=== PATIENT | female | born 1975 | race Caucasian/White ===

== ENCOUNTER 2017-05-18 03:43 | Emergency (ER) | payer SELFPAY ==
[2017-05-18 04:58] LABS: Bilirubin,Urine NEG (Negative); Blood,Urine NEG (Negative); Ketones,Urine NEG (Negative); Leukocyte Esterase,Urine NEG (Negative); Nitrite,Urine NEG (Negative); Protein,Urine <15 mg/dL mg/dL (Negative); RBC,Urine < 1.0 /HPF (0.0-6.0); Urobilinogen,Urine < 2.0 mg/dL (<2.0); WBC,Urine < 1.0 /HPF (0.0-6.0)
[2017-05-18 05:04] LABS: Basophils % (Auto) 0.6 % (0.0-1.8); Eosinophils % (Auto) 0.3 % (0.0-4.3); Hematocrit 32.8 % (30.3-42.9); Hemoglobin 10.5 gm/dl (10.1-14.3); Mean Corpuscular HGB Conc 32 % (30-34); Mean Corpuscular Volume 81 fl (79-97); Platelet Count 460 K/mm3 (140-440); Red Blood Count 4.05 M/mm3 (3.65-5.03); White Blood Count 7.5 K/mm3 (4.5-11.0)
[2017-05-18 05:11] LABS: Mean Corpuscular Hemoglobin 26 pg (28-32); Red Cell Distribution Width 20.6 % (13.2-15.2)
[2017-05-18 05:13] LABS: Anion Gap 22 mmol/L; Blood Urea Nitrogen 4 mg/dL (7-17); Calcium 9.4 mg/dL (8.4-10.2); Carbon Dioxide 22 mmol/L (22-30); Chloride 98.7 mmol/L (98-107); Glucose 108 mg/dL (65-100); Potassium 4.3 mmol/L (3.6-5.0); Sodium 138 mmol/L (137-145)
[2017-05-18] MEDS ORDERED: ATIVAN ONE (05:31)
[2017-05-18] MEDS ORDERED: ATIVAN PO ONE (05:35)
--- NOTE | 2017-05-18 06:51 | Emergency Department Report ---
ED Psych HPI - General Chief Complaint: Psych Stated Complaint: HEARING VOICES/MENTAL HEALTH EVALUATION Time Seen by Provider: 05/18/17 05:58 Source: patient Mode of arrival: Ambulatory - History of Present Illness Initial Comments: 41-year-old female here with complaint of wanting to harm herself. Patient has a history of bipolar and depression. States she is not taking her meds because they make her "crazy". She denies fevers chills nausea vomiting. She does complain of a mild headache. MD Complaint: suicidal ideation, feels depressed -: Gradual Associated Psychiatric Symptoms: depression, suicidal ideation Quality: constant Improves With: none Worsens With: medication Associated Symptoms: headache, insomnia. denies: shortness of breath, nausea, vomiting, syncope Treatments Prior to Arrival: none If Self Harm: admits thoughts of, has plan, has acted on plan - Related Data Previous Rx's Medication Instructions Recorded Last Taken Type Cyclobenzaprine [Flexeril] 10 mg PO TID PRN #14 tablet 12/20/16 Unknown Rx Naproxen [Naprosyn] 500 mg PO BID #30 tablet 12/20/16 Unknown Rx Allergies Allergy/AdvReac Type Severity Reaction Status Date / Time No Known Allergies Allergy Unverified 01/19/15 14:28 ED Review of Systems ROS: Stated complaint: HEARING VOICES/MENTAL HEALTH EVALUATION Other details as noted in HPI Comment: All other systems reviewed and negative Constitutional: denies: chills, fever Eyes: denies: eye pain, eye discharge, vision change ENT: denies: ear pain, throat pain Respiratory: denies: cough, shortness of breath, wheezing Cardiovascular: denies: chest pain, palpitations Endocrine: no symptoms reported Gastrointestinal: denies: abdominal pain, nausea, diarrhea Genitourinary: denies: urgency, dysuria, discharge Musculoskeletal: denies: back pain, joint swelling, arthralgia Skin: denies: rash, lesions Neurological: denies: headache, weakness, paresthesias Psychiatric: denies: anxiety, depression Hematological/Lymphatic: denies: easy bleeding, easy bruising ED Past Medical Hx - Past Medical History Previous Medical History?: Yes Hx Psychiatric Treatment: Yes (Bipolar and depression) - Surgical History Past Surgical History?: Yes Hx Appendectomy: Yes - Family History Family history: no significant - Social History Smoking Status: Current Every Day Smoker Substance Use Type: None - Medications Home Medications: Home Medications Medication Instructions Recorded Confirmed Last Taken Type Cyclobenzaprine [Flexeril] 10 mg PO TID PRN #14 tablet 12/20/16 Unknown Rx Naproxen [Naprosyn] 500 mg PO BID #30 tablet 12/20/16 Unknown Rx ED Physical Exam - General Limitations: No Limitations General appearance: alert, in no apparent distress - Head Head exam: Present: atraumatic, normocephalic - Eye Eye exam: Present: normal appearance, PERRL - ENT ENT exam: Present: mucous membranes moist - Neck Neck exam: Present: normal inspection - Respiratory Respiratory exam: Present: normal lung sounds bilaterally. Absent: respiratory distress - Cardiovascular Cardiovascular Exam: Present: regular rate, normal rhythm. Absent: systolic murmur, diastolic murmur, rubs, gallop - GI/Abdominal GI/Abdominal exam: Present: soft, normal bowel sounds - Extremities Exam Extremities exam: Present: normal inspection. Absent: tenderness - Back Exam Back exam: Present: normal inspection - Neurological Exam Neurological exam: Present: alert, oriented X3 - Psychiatric Psychiatric exam: Present: normal affect, agitated, anxious, suicidal ideation - Skin Skin exam: Present: warm, dry, intact, normal color. Absent: rash ED Course Vital Signs 05/18/17 05/18/17 05/18/17 03:50 03:59 08:13 Temperature 98.5 F 98.5 F 98.5 F Pulse Rate 101 H 101 H 97 H Respiratory 20 20 20 Rate Blood Pressure 138/99 Blood Pressure 138/99 119/66 [Right] O2 Sat by Pulse 99 99 100 Oximetry ED Medical Decision Making - Lab Data Result diagrams: 05/18/17 04:41 05/18/17 04:41 Laboratory Results - last 24 hr 05/18/17 05/18/17 05/18/17 04:41 04:41 05:25 WBC 7.5 RBC 4.05 Hgb 10.5 Hct 32.8 MCV 81 MCH 26 L MCHC 32 RDW 20.6 H Plt Count 460 H Lymph % (Auto) 44.1 H [place] % (Auto) 9.8 H Eos % (Auto) 0.3 Baso % (Auto) 0.6 Lymph # 3.3 [place] # 0.7 Eos # 0.0 Baso # 0.0 Seg Neutrophils % 45.2 Seg Neutrophils # 3.4 Sodium 138 Potassium 4.3 Chloride 98.7 Carbon Dioxide 22 Anion Gap 22 BUN 4 L Creatinine 0.5 L Estimated GFR > 60 BUN/Creatinine Ratio 8.00 Glucose 108 H Calcium 9.4 Urine Color Urine Turbidity Urine pH Ur Specific [place] Urine Protein Urine Glucose (UA) Urine Ketones Urine Blood Urine Nitrite Urine Bilirubin Urine Urobilinogen Ur Leukocyte Esterase Urine WBC (Auto) Urine RBC (Auto) Urine HCG, Qual Acetaminophen < 15.0 Plasma/Serum Alcohol 05/18/17 05/18/17 05:25 Unknown WBC RBC Hgb Hct MCV MCH MCHC RDW Plt Count Lymph % (Auto) [place] % (Auto) Eos % (Auto) Baso % (Auto) Lymph # [place] # Eos # Baso # Seg Neutrophils % Seg Neutrophils # Sodium Potassium Chloride Carbon Dioxide Anion Gap BUN Creatinine Estimated GFR BUN/Creatinine Ratio Glucose Calcium Urine Color Straw Urine Turbidity Clear Urine pH 6.0 Ur Specific [place] 1.000 L Urine Protein <15 mg/dl Urine Glucose (UA) Neg Urine Ketones Neg Urine Blood Neg Urine Nitrite Neg Urine Bilirubin Neg Urine Urobilinogen < 2.0 Ur Leukocyte Esterase Neg Urine WBC (Auto) < 1.0 Urine RBC (Auto) < 1.0 Urine HCG, Qual Negative Acetaminophen Plasma/Serum Alcohol 0.17 H - Medical Decision Making Patient is a 41-year-old female here with complaint of suicidality and depression. She complains of agitation. She has a mild headache. I will treat this with ibuprofen. She is medically clear for further psychiatric evaluation from my standpoint. Portions of this chart were dictated with dictation software. There may be dictation errors contained within this note. Critical care attestation.: If time is entered above; I have spent that time in minutes in the direct care of this critically ill patient, excluding procedure time. ED Disposition Clinical Impression: Suicidal ideation Disposition: [id number]/TX-[id number] PSY HOSP/PSY UNIT Is pt being admited?: No Condition: Stable Referrals: PRIMARY CARE, [Primary Care Provider] - 3-5 Days
[2017-05-18] MEDS ORDERED: MOTRIN PO ONE (06:52)
[2017-05-18 06:56] LABS: Urine Drugs of Abuse Note Disclamer
--- NOTE | 2017-05-18 15:40 | Consultation ---
History of Present Illness - Reason for Consult Consult date: 05/18/17 Reason for consult: psychiatric evaluation - Chief Complaint Chief complaint: sleeping 41 year old female presented complaining of suicidal ideation and command auditory hallucinations worsening for the past 2 weeks. Per the record, she stated during triage that she wanted to and was going to kill herself. Per the reocrd, she was uncooperative with previous assessment attempts but at one point admitted that she was hearing voices and that the voices were telling her to kill herself. She denied any thought or directive to harm others. She was sleeping and despite several attempts to speak with her, she continued to sleep. The information was obtained via the record. Her drug screen was positive for cocaine and alcohol level was 0.17 Medications and Allergies Allergies Allergy/AdvReac Type Severity Reaction Status Date / Time No Known Allergies Allergy Unverified 01/19/15 14:28 Home Medications Medication Instructions Recorded Confirmed Last Taken Type Cyclobenzaprine [Flexeril] 10 mg PO TID PRN #14 tablet 12/20/16 Unknown Rx Naproxen [Naprosyn] 500 mg PO BID #30 tablet 12/20/16 Unknown Rx Past psychiatric history - Past Medical History Past Medical History: other (unable to obtain) Past Surgical History: Other (unable to obtain) - past Psychiatric treatment and history psychiatric treatment history: unable to obtain - Social History Social history: other (unable to obtain) Mental Status Exam - Vital signs Last Vital Signs Temp 98.5 F 05/18/17 08:13 Pulse 97 H 05/18/17 08:13 Resp 20 05/18/17 08:13 BP 119/66 05/18/17 08:13 Pulse Ox 100 05/18/17 08:13 - Exam Narrative exam: per the record, she previously reported suicidal ideation, paranoia unable to obtain additional information Orientation: person Results Result Diagrams: 05/18/17 04:41 05/18/17 04:41 Abnormal lab results 05/18/17 05/18/17 05/18/17 Range/Units 04:41 04:41 05:25 MCH 26 L (28-32) pg RDW 20.6 H (13.2-15.2) % Plt Count 460 H (140-440) K/mm3 Lymph % (Auto) 44.1 H (13.4-35.0) % [place] % (Auto) 9.8 H (0.0-7.3) % BUN 4 L (7-17) mg/dL Creatinine 0.5 L (0.7-1.2) mg/dL Glucose 108 H (65-100) mg/dL Ur Specific [place] (1.003-1.030) Salicylates < 0.3 L (2.8-20.0) mg/dL Plasma/Serum Alcohol (0-0.07) gm% 05/18/17 05/18/17 Range/Units 05:25 Unknown MCH (28-32) pg RDW (13.2-15.2) % Plt Count (140-440) K/mm3 Lymph % (Auto) (13.4-35.0) % [place] % (Auto) (0.0-7.3) % BUN (7-17) mg/dL Creatinine (0.7-1.2) mg/dL Glucose (65-100) mg/dL Ur Specific [place] 1.000 L (1.003-1.030) Salicylates (2.8-20.0) mg/dL Plasma/Serum Alcohol 0.17 H (0-0.07) gm% All other labs normal. Assessment and Plan Assessment and plan: Impression: possible substance induced psychosis + for cocaine and alcohol level 0.17 Recommendation: Continue 1013 and reevaluate in 24 hours Attempt to obtain collateral
[2017-05-19] MEDS ORDERED: MOTRIN PO ONE (12:24)
--- NOTE | 2017-05-19 12:45 | Progress Note ---
Subjective - Reason for Consult Consult date: 05/19/17 Reason for consult: Psychiatry Follow-up - Chief Complaint Chief complaint: "Hello" 41 year old female presented complaining of suicidal ideation and command auditory hallucinations worsening for the past 2 weeks. Today patient is calm, cooperative, but anxious and paranoid during assessment. She stated that she is still suicidal because of the voices she hear. She stated that these voices have been out of control for weeks and they are telling her to kill herself. She stated that she would overdose on pills is she had the chance. She admitted being scared, but can't explain why. She stated that she tried cocaine with a friend for the first time along with consuming alcohol. She stated that she consumed more alcohol than normal because she wanted the voices to go away. During our conversation, the patient kept her head covered. She denies HI's, VH' s, but stated sleep disturbance. She stated taken Zyprexa for Bipolar/ Depression. She admit to medication non-compliance and not seeing her psychiatrist for the past few months. She denies any suicide attempts and psy inpatient services in the past. Mental Status Exam - Vital signs Last Vital Signs Temp 98.5 F 05/18/17 08:13 Pulse 97 H 05/18/17 08:13 Resp 20 05/19/17 10:57 BP 119/66 05/18/17 08:13 Pulse Ox 100 05/19/17 10:57 - Exam Narrative exam: MSE: Appearance: calm, cooperative Behavior: regular eye contact Speech: low rate and tone Mood: "scared" Affect: labile Thought Process: circumstantial Thought Content: denies HI's and VH's, paranoid Motor Activity: ambulatory Cognition: A/Ox 3 Insight: poor Judgment: poor Assessment and Plan Impression: Historical Dx: Bipolar/Depression. Active Psychosis (AH's/Paranoia) . Substance Use DO (Cocaine). Alcohol Use DO. Positive for cocaine. Alcohol serum 0.17. Today patient is calm, cooperative, but anxious and paranoid during assessment. Recommendation/Plan: Continue 1013 with placement to inpatient psy services. Start Zyprexa 5 mg PO HS for psychotic symptoms/mood, Cogentin 0.5 mg PO HS for EPS prevention, and Vistaril 25 mg PO Q6hrs PRN for anxiety. Discussed possible metabolic side effects of Zyprexa with patient.
[2017-05-19] MEDS: COGENTIN PO SCH (22:00)
[2017-05-19] MEDS: VISTARIL PO PRN (22:00)
[2017-05-20] MEDS ORDERED: MOTRIN PO ONE (10:56)
[2017-05-20] MEDS: MOTRIN PO PRN (10:58)
--- NOTE | 2017-05-20 12:42 | Progress Note ---
Subjective - Reason for Consult Consult date: 05/20/17 Reason for consult: Psychiatry Follow-up - Chief Complaint Chief complaint: "Hello" 41 year old female presented complaining of suicidal ideation and command auditory hallucinations worsening for the past 2 weeks. Today patient is calm and cooperative during the assessment. She still reports AH's that interfere with her sleep. She stated that she isn't scared today, but still feel that someone is watching her. The patient did not have the sheets pulled over her head as she did yesterday. She denies HI's, VH"s, and and depression. She stated that she still feel suicidal. She denies any side effects of her medications. Mental Status Exam - Vital signs Last Vital Signs Temp 98.9 F 05/19/17 20:15 Pulse 99 H 05/20/17 07:30 Resp 18 05/20/17 07:30 BP 115/82 05/20/17 07:30 Pulse Ox 100 05/20/17 07:30 - Exam Narrative exam: MSE: Appearance: calm, cooperative Behavior: regular eye contact Speech: regular rate and tone Mood: "tired" Affect: labile Thought Process: circumstantial Thought Content: denies HI's and VH's, paranoid Motor Activity: ambulatory Cognition: A/Ox 3 Insight: limited Judgment: limited Assessment and Plan Impression: Historical Dx: Bipolar/Depression. Active Psychosis (AH's/Paranoia) . Substance Use DO (Cocaine). Alcohol Use DO. Positive for cocaine. Alcohol serum 0.17. Today patient is calm and cooperative during assessment. Recommendation/Plan: Continue 1013 with placement to inpatient psy services. Modify Zyprexa to 10 mg PO HS for psychotic symptoms/mood, Cogentin 0.5 mg PO HS for EPS prevention, and Vistaril 25 mg PO Q6hrs PRN for anxiety. Discussed possible metabolic side effects of Zyprexa with patient. Possible order a sleep aid tomorrow if patient report sleep disturbance overnight.
[2017-05-20] MEDS: VISTARIL PO PRN (23:05)
[2017-05-20] MEDS: COGENTIN PO SCH (23:09)
[2017-05-21] MEDS: MOTRIN PO PRN (08:48)
[2017-05-21] MEDS: COGENTIN PO SCH (22:55)
[2017-05-21] MEDS: VISTARIL PO PRN (23:04)
--- NOTE | 2017-05-22 11:27 | Progress Note ---
Subjective - Reason for Consult Consult date: 05/22/17 Reason for consult: Psychiatry Follow-up - Chief Complaint Chief complaint: "How are you" 41 year old female presented complaining of suicidal ideation and command auditory hallucinations worsening for the past 2 weeks. Today patient is calm and cooperative during the assessment. She stated that the voices have ceased the past 24 hours. She denies SI/HI's and depression symptoms. She stated that she feel safe prior to other assessments (paranoia). She stated that she will not use cocaine again. She denies any side effects of her medications. Mental Status Exam - Vital signs Last Vital Signs Temp 98.2 F 05/22/17 10:21 Pulse 82 05/22/17 10:21 Resp 18 05/22/17 10:21 BP 147/87 05/22/17 10:21 Pulse Ox 97 05/22/17 10:21 - Exam Narrative exam: MSE: Appearance: calm, cooperative Behavior: regular eye contact Speech: regular rate and tone Mood: "well" Affect: congruent to mmod Thought Process: circumstantial Thought Content: denies SI/HI's and AVH's Motor Activity: ambulatory Cognition: A/Ox 3 Insight: fair Judgment: fair Assessment and Plan Impression: Historical Dx: Bipolar/Depression. Substance Use DO (Cocaine). Alcohol Use DO. Positive for cocaine. Today patient is calm and cooperative during assessment. Recommendation/Plan: Evaluate 1013 in 24 hours to determine proper dispo. Continue Zyprexa to 10 mg PO HS for psychotic symptoms/mood, Cogentin 0.5 mg PO HS for EPS prevention, and Vistaril 25 mg PO Q6hrs PRN for anxiety. Discussed possible metabolic side effects of Zyprexa with patient.
[2017-05-22] MEDS: MOTRIN PO PRN (22:29)
[2017-05-22] MEDS: COGENTIN PO SCH (22:29)
[2017-05-22] MEDS: VISTARIL PO PRN (22:30)
[2017-05-23] MEDS: MOTRIN PO PRN (10:34)
--- NOTE | 2017-05-23 11:55 | Progress Note ---
Subjective - Reason for Consult Consult date: 05/23/17 Reason for consult: Psychiatry Follow-up - Chief Complaint Chief complaint: "I feel much better" 41 year old female presented complaining of suicidal ideation and command auditory hallucinations worsening for the past 2 weeks. Today patient is calm and cooperative during the assessment. She stated that she slept well and look forward to being discharged. She stated that she would like information about outpatient psy services. She denies SI/HI's, AVH's, and depression symptoms. She stated that she feel safe prior to other assessments (paranoia). Mental Status Exam - Vital signs Last Vital Signs Temp 98.2 F 05/23/17 07:34 Pulse 75 05/23/17 07:34 Resp 16 05/23/17 07:34 BP 111/64 05/23/17 07:34 Pulse Ox 99 05/23/17 07:34 - Exam Narrative exam: MSE: Appearance: calm, cooperative Behavior: regular eye contact Speech: regular rate and tone Mood: "well" Affect: congruent to mood Thought Process: linear Thought Content: denies SI/HI's and AVH's Motor Activity: ambulatory Cognition: A/Ox 3 Insight: fair Judgment: fair Assessment and Plan Impression: Historical Dx: Bipolar/Depression. Substance Use DO (Cocaine). Alcohol Use DO. Today patient is calm and cooperative during assessment. Patient is no threat to self. Recommendation/Plan: Rescind 1013. Continue Zyprexa to 10 mg PO HS for psychotic symptoms/mood and Cogentin 0.5 mg PO HS for EPS prevention. Discussed possible metabolic side effects of Zyprexa with patient. Patient given outpatient psy services for [facility].
--- NOTE | 2017-05-23 14:04 | Emergency Department Report ---
HPI - General Chief Complaint: Psych Time Seen by Provider: 05/18/17 05:58 ED Past Medical Hx - Past Medical History Previous Medical History?: Yes Hx Psychiatric Treatment: Yes (Bipolar and depression) - Surgical History Past Surgical History?: Yes Hx Appendectomy: Yes - Social History Smoking Status: Current Every Day Smoker Substance Use Type: None - Medications Home Medications: Home Medications Medication Instructions Recorded Confirmed Last Taken Type Benztropine [Cogentin] 0.5 mg PO HS #30 tablet 05/23/17 Unknown Rx OLANzapine [ZyPREXA] 10 mg PO HS #30 tablet 05/23/17 Unknown Rx ED Review of Systems ROS: Stated complaint: HEARING VOICES/MENTAL HEALTH EVALUATION Other details as noted in HPI Constitutional: denies: chills, fever Eyes: denies: eye pain, eye discharge, vision change ENT: denies: ear pain, throat pain Respiratory: denies: cough, shortness of breath, wheezing Cardiovascular: denies: chest pain, palpitations Endocrine: no symptoms reported Gastrointestinal: denies: abdominal pain, nausea, diarrhea Genitourinary: denies: urgency, dysuria, discharge Musculoskeletal: denies: back pain, joint swelling, arthralgia Skin: denies: rash, lesions Neurological: denies: headache, weakness, paresthesias Psychiatric: denies: anxiety, depression Hematological/Lymphatic: denies: easy bleeding, easy bruising Physical Exam - Physical Exam Vital Signs: Vital Signs 05/18/17 05/18/17 05/18/17 03:50 03:59 08:13 Temperature 98.5 F 98.5 F 98.5 F Pulse Rate 101 H 101 H 97 H Respiratory 20 20 20 Rate Blood Pressure 138/99 Blood Pressure 138/99 119/66 [Right] O2 Sat by Pulse 99 99 100 Oximetry 05/19/17 05/19/17 05/19/17 10:00 10:57 20:15 Temperature 98.6 F 98.9 F Pulse Rate 82 76 Respiratory 18 20 18 Rate Blood Pressure Blood Pressure 107/77 102/71 [Right] O2 Sat by Pulse 100 96 Oximetry 05/19/17 05/20/17 05/20/17 22:00 07:30 20:00 Temperature 98.9 F Pulse Rate 99 H 78 Respiratory 16 18 18 Rate Blood Pressure Blood Pressure 115/82 120/79 [Right] O2 Sat by Pulse 100 98 Oximetry 05/21/17 05/21/17 05/21/17 08:30 08:31 20:03 Temperature 98.4 F 98.6 F Pulse Rate 88 69 Respiratory 14 14 18 Rate Blood Pressure Blood Pressure 127/78 113/66 [Right] O2 Sat by Pulse 98 98 100 Oximetry 05/21/17 05/22/17 05/22/17 20:05 10:21 21:39 Temperature 98.2 F 99.4 F Pulse Rate 82 60 Respiratory 18 18 16 Rate Blood Pressure Blood Pressure 147/87 122/70 [Right] O2 Sat by Pulse 100 97 Oximetry 05/22/17 05/23/17 21:50 07:34 Temperature 98.6 F 98.2 F Pulse Rate 73 75 Respiratory 16 16 Rate Blood Pressure Blood Pressure 127/77 111/64 [Right] O2 Sat by Pulse 99 Oximetry ED Course Vital Signs 05/18/17 05/18/17 05/18/17 03:50 03:59 08:13 Temperature 98.5 F 98.5 F 98.5 F Pulse Rate 101 H 101 H 97 H Respiratory 20 20 20 Rate Blood Pressure 138/99 Blood Pressure 138/99 119/66 [Right] O2 Sat by Pulse 99 99 100 Oximetry 05/19/17 05/19/17 05/19/17 10:00 10:57 20:15 Temperature 98.6 F 98.9 F Pulse Rate 82 76 Respiratory 18 20 18 Rate Blood Pressure Blood Pressure 107/77 102/71 [Right] O2 Sat by Pulse 100 96 Oximetry 05/19/17 05/20/17 05/20/17 22:00 07:30 20:00 Temperature 98.9 F Pulse Rate 99 H 78 Respiratory 16 18 18 Rate Blood Pressure Blood Pressure 115/82 120/79 [Right] O2 Sat by Pulse 100 98 Oximetry 05/21/17 05/21/17 05/21/17 08:30 08:31 20:03 Temperature 98.4 F 98.6 F Pulse Rate 88 69 Respiratory 14 14 18 Rate Blood Pressure Blood Pressure 127/78 113/66 [Right] O2 Sat by Pulse 98 98 100 Oximetry 05/21/17 05/22/17 05/22/17 20:05 10:21 21:39 Temperature 98.2 F 99.4 F Pulse Rate 82 60 Respiratory 18 18 16 Rate Blood Pressure Blood Pressure 147/87 122/70 [Right] O2 Sat by Pulse 100 97 Oximetry 05/22/17 05/23/17 21:50 07:34 Temperature 98.6 F 98.2 F Pulse Rate 73 75 Respiratory 16 16 Rate Blood Pressure Blood Pressure 127/77 111/64 [Right] O2 Sat by Pulse 99 Oximetry ED Medical Decision Making - Lab Data Result diagrams: 05/18/17 04:41 05/18/17 04:41 Critical care attestation.: If time is entered above; I have spent that time in minutes in the direct care of this critically ill patient, excluding procedure time. ED Disposition Clinical Impression: Suicidal ideation, Bipolar 1 disorder, depressed Disposition: DC-01 TO HOME OR SELFCARE Is pt being admited?: No Condition: Stable Instructions: Bipolar Disorder (ED), Suicide Prevention for Adults (ED) Additional Instructions: Please continue your Zyprexa 10 mg at night. He may also take Cogentin 0.5 mg at night. Follow up as an outpatient the [facility]. Prescriptions: Benztropine [Cogentin] 0.5 mg PO HS #30 tablet OLANzapine [ZyPREXA] 10 mg PO HS #30 tablet Referrals: PRIMARY CARE, [Primary Care Provider] - 3-5 Days
[2017-05-23 14:27] VITALS: BP 131/89
== END 2017-05-23 14:33 | disposition home or self-care (01) ==
LOC: ED 03:43 → EEVIPCON 03:43 → ED 05-23 14:33
DX: R45.851 Suicidal ideations (principal); F17.200 Nicotine dependence, unspecified, uncomplicated
CPT/HCPCS: 36415; 80048; 80307; 81001; 81025; 85025; 99284; G0480; 80320; Q0177

== ENCOUNTER 2017-05-24 08:32 | Emergency (ER) | payer SELFPAY ==
[2017-05-24] MEDS ORDERED: BENADRYL IM PRN (08:42)
[2017-05-24] MEDS ORDERED: ATIVAN IM PRN (08:42)
[2017-05-24] MEDS ORDERED: HALDOL IM PRN (08:42)
[2017-05-24] MEDS ORDERED: ATIVAN ONE (08:43)
--- NOTE | 2017-05-24 09:00 | Emergency Department Report ---
HPI - General Chief Complaint: Psych - HPI HPI: Room 15 The patient is a 41-year-old female presenting with a chief complaint psychosis. The patient reportedly called the crisis line when turn called police. Police states that the patient was erratic stated that she was worried about people coming out of the TV trying to hurt her. The patient states she had a knife to protect herself against people coming out of the television. The patient states she was taking her medication for her medication is not working. Police states the patient stated "I want to ." The patient was transported to the ED where she became combative and continued to be erratic Location: Mental state Duration: Unknown Quality: [see above] Severity: [see above] Modifying factors: [see above] Context: [see above] Mode of transportation: [not driving] ED Past Medical Hx - Past Medical History Hx Psychiatric Treatment: Yes (Bipolar and depression) - Surgical History Hx Appendectomy: Yes - Family History Family history: no significant - Social History Smoking Status: Unknown if ever smoked - Medications Home Medications: Home Medications Medication Instructions Recorded Confirmed Last Taken Type Benztropine [Cogentin] 0.5 mg PO HS #30 tablet 05/23/17 Unknown Rx OLANzapine [ZyPREXA] 10 mg PO HS #30 tablet 05/23/17 Unknown Rx ED Review of Systems ROS: Stated complaint: 1013/MH Other details as noted in HPI Comment: Unobtainable due to pts medical conditions Physical Exam - Physical Exam Physical Exam: GENERAL: The patient is well-developed well-nourished female screaming and combative requiring restraints by staff. [] HEENT: Normocephalic. NECK: Trachea midline CHEST/LUNGS: Airway patent. There is no respiratory distress noted. HEART/CARDIOVASCULAR: Regular. ABDOMEN: There is no abdominal distention. SKIN: There is no rash. There is no edema. There is no diaphoresis. NEURO: The patient is awake and combative. Moves all extremities well MUSCULOSKELETAL: There is no evidence of acute injury. ED Medical Decision Making - Lab Data Result diagrams: 05/24/17 12:00 05/24/17 12:00 Laboratory Tests 05/24/17 05/24/17 05/24/17 10:00 10:00 12:00 WBC RBC Hgb Hct MCV MCH MCHC RDW Plt Count Lymph % (Auto) [place] % (Auto) Eos % (Auto) Baso % (Auto) Lymph # [place] # Eos # Baso # Seg Neutrophils % Seg Neutrophils # Sodium Potassium Chloride Carbon Dioxide Anion Gap BUN Creatinine Estimated GFR BUN/Creatinine Ratio Glucose Calcium Total Bilirubin AST ALT Alkaline Phosphatase Total Protein Albumin Albumin/Globulin Ratio HCG, Qual Urine Color Straw Urine Turbidity Clear Urine pH 6.0 Ur Specific [place] 1.001 L Urine Protein <15 mg/dl Urine Glucose (UA) Neg Urine Ketones Neg Urine Blood Lg Urine Nitrite Neg Urine Bilirubin Neg Urine Urobilinogen < 2.0 Ur Leukocyte Esterase Neg Urine WBC (Auto) < 1.0 Urine RBC (Auto) 1.0 Salicylates Urine Opiates Screen Presumptive negative Urine Methadone Screen Presumptive negative Acetaminophen Ur Barbiturates Screen Presumptive negative Ur Phencyclidine Scrn Presumptive negative Ur Amphetamines Screen Presumptive negative U Benzodiazepines Scrn Presumptive negative Urine Cocaine Screen Presumptive positive U Marijuana (THC) Screen Presumptive negative Drugs of Abuse Note Disclamer Plasma/Serum Alcohol 0.11 H 05/24/17 05/24/17 05/24/17 12:00 12:00 12:00 WBC 8.9 RBC 3.88 Hgb 10.1 Hct 31.5 MCV 81 MCH 26 L MCHC 32 RDW 20.2 H Plt Count 358 Lymph % (Auto) 21.6 [place] % (Auto) 12.9 H Eos % (Auto) 0.3 Baso % (Auto) 1.0 Lymph # 1.9 [place] # 1.2 H Eos # 0.0 Baso # 0.1 Seg Neutrophils % 64.2 Seg Neutrophils # 5.7 Sodium 140 Potassium 3.7 Chloride 100.9 Carbon Dioxide 20 L Anion Gap 23 BUN 7 Creatinine 0.5 L Estimated GFR > 60 BUN/Creatinine Ratio 14.00 Glucose 116 H Calcium 9.0 Total Bilirubin < 0.20 AST 153 H ALT 76 H Alkaline Phosphatase 73 Total Protein 7.6 Albumin 4.0 Albumin/Globulin Ratio 1.1 HCG, Qual Urine Color Urine Turbidity Urine pH Ur Specific [place] Urine Protein Urine Glucose (UA) Urine Ketones Urine Blood Urine Nitrite Urine Bilirubin Urine Urobilinogen Ur Leukocyte Esterase Urine WBC (Auto) Urine RBC (Auto) Salicylates < 0.3 L Urine Opiates Screen Urine Methadone Screen Acetaminophen Ur Barbiturates Screen Ur Phencyclidine Scrn Ur Amphetamines Screen U Benzodiazepines Scrn Urine Cocaine Screen U Marijuana (THC) Screen Drugs of Abuse Note Plasma/Serum Alcohol 05/24/17 05/24/17 12:00 12:00 WBC RBC Hgb Hct MCV MCH MCHC RDW Plt Count Lymph % (Auto) [place] % (Auto) Eos % (Auto) Baso % (Auto) Lymph # [place] # Eos # Baso # Seg Neutrophils % Seg Neutrophils # Sodium Potassium Chloride Carbon Dioxide Anion Gap BUN Creatinine Estimated GFR BUN/Creatinine Ratio Glucose Calcium Total Bilirubin AST ALT Alkaline Phosphatase Total Protein Albumin Albumin/Globulin Ratio HCG, Qual Negative Urine Color Urine Turbidity Urine pH Ur Specific [place] Urine Protein Urine Glucose (UA) Urine Ketones Urine Blood Urine Nitrite Urine Bilirubin Urine Urobilinogen Ur Leukocyte Esterase Urine WBC (Auto) Urine RBC (Auto) Salicylates Urine Opiates Screen Urine Methadone Screen Acetaminophen < 15.0 Ur Barbiturates Screen Ur Phencyclidine Scrn Ur Amphetamines Screen U Benzodiazepines Scrn Urine Cocaine Screen U Marijuana (THC) Screen Drugs of Abuse Note Plasma/Serum Alcohol - Differential Diagnosis psychosis, suicidal ideation Critical care attestation.: If time is entered above; I have spent that time in minutes in the direct care of this critically ill patient, excluding procedure time. ED Disposition Clinical Impression: Suicidal ideation, Psychosis, Cocaine abuse, Alcohol intoxication Disposition: DC/TX-65 PSY HOSP/PSY UNIT Is pt being admited?: No Does the pt Need Aspirin: No Condition: Serious Time of Disposition: 13:58 (awaiting acceptance)
[2017-05-24 10:05] LABS: Urine Drugs of Abuse Note Disclamer
[2017-05-24 11:33] LABS: Bilirubin,Urine NEG (Negative); Blood,Urine LG (Negative); Ketones,Urine NEG (Negative); Leukocyte Esterase,Urine NEG (Negative); Nitrite,Urine NEG (Negative); Protein,Urine <15 mg/dL mg/dL (Negative); Urobilinogen,Urine < 2.0 mg/dL (<2.0); WBC,Urine < 1.0 /HPF (0.0-6.0)
[2017-05-24 12:26] LABS: Eosinophils % (Auto) 0.3 % (0.0-4.3); Hematocrit 31.5 % (30.3-42.9); Hemoglobin 10.1 gm/dl (10.1-14.3); Mean Corpuscular HGB Conc 32 % (30-34); Mean Corpuscular Hemoglobin 26 pg (28-32); Mean Corpuscular Volume 81 fl (79-97); Platelet Count 358 K/mm3 (140-440); Red Blood Count 3.88 M/mm3 (3.65-5.03); White Blood Count 8.9 K/mm3 (4.5-11.0)
[2017-05-24 12:28] LABS: Red Cell Distribution Width 20.2 % (13.2-15.2)
[2017-05-24 12:29] LABS: Alanine Aminotransferase 76 units/L (7-56); Albumin/Globulin Ratio 1.1 %; Alkaline Phosphatase 73 units/L (35-129); Anion Gap 23 mmol/L; Bilirubin,Total < 0.20 mg/dL (0.1-1.2); Blood Urea Nitrogen 7 mg/dL (7-17); Carbon Dioxide 20 mmol/L (22-30); Chloride 100.9 mmol/L (98-107); Glucose 116 mg/dL (65-100); Potassium 3.7 mmol/L (3.6-5.0); Sodium 140 mmol/L (137-145); Total Protein 7.6 g/dL (6.3-8.2)
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
[2017-05-25] MEDS: COGENTIN PO SCH (21:59)
--- NOTE | 2017-05-26 11:28 | Progress Note ---
Subjective - Reason for Consult Consult date: 05/26/17 Reason for consult: Psychiatry Follow-up - Chief Complaint Chief complaint: "I need to stop" The patient is a 41-year-old female presenting with a chief complaint of psychotic symptoms and wanting to harm herself. She presented to the ER on for similar symptoms. Today patient is calm and cooperative during assessment. She stated that she consumed alcohol and used cocaine because it was available at the time. She stated knowing that's not the right thing to do, but her friend (partner) or friends who live with her make her "crazy." She stated that they argue often and she cannot deal with it. Per the patient she plan to put them out once she is discharged. She stated that she took her medication prior to consuming the substances. She denies SI/HI's, AVH's, and depression. She denies any side effects of her medications. Mental Status Exam - Vital signs Last Vital Signs Temp 98 F 05/26/17 03:21 Pulse 88 05/26/17 03:21 Resp 18 05/26/17 03:21 BP 132/75 05/26/17 03:21 Pulse Ox 97 05/26/17 03:21 - Exam Narrative exam: MSE: Appearance: calm, cooperative Behavior: regular eye contact Speech: regular rate and tone Mood: "I don't know" Affect: congruent to mood Thought Process: circumstantial Thought Content: denies HI/SI's and AVH's Motor Activity: sitting up in the bed Cognition: A/Ox 3 Insight: variable Judgment: variable Assessment and Plan Impression: Historical Dx: Bipolar/Depression/Schizophrenia. Substance Use DO ( Cocaine). Alcohol Use DO. Positive for cocaine. Alcohol serum 0.11. Today patient is calm and cooperative during assessment. Psychosocial stressors present. She denies physical abuse. Recommendation/Plan: Evaluate 1013 in 24 hours to determine proper dispo. Continue Zyprexa to 10 mg PO HS for psychotic symptoms/mood and Cogentin 0.5 mg PO HS for EPS prevention.
[2017-05-26] MEDS: COGENTIN PO SCH (22:00)
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
[2017-05-27] MEDS: COGENTIN PO SCH (22:01)
--- NOTE | 2017-05-28 14:28 | Progress Note ---
Subjective - Reason for Consult Consult date: 05/28/17 Reason for consult: follow up - Chief Complaint Chief complaint: "I want to go home." The patient is a 41-year-old female presenting with a chief complaint of psychotic symptoms and wanting to harm herself. She presented to the ER on for similar symptoms. Today patient is calm and cooperative during assessment. She denies SI/HI's, AVH's, and depression. She denies any side effects of her medications. She minimizes the circumstances of her 2 hospital stays. Mental Status Exam - Vital signs Last Vital Signs Temp 98.6 F 05/28/17 12:23 Pulse 78 05/28/17 12:23 Resp 20 05/28/17 12:23 BP 132/72 05/28/17 12:23 Pulse Ox 99 05/28/17 12:23 Assessment and Plan MSE: Appearance: calm, cooperative Behavior: regular eye contact Speech: regular rate and tone Mood: irritable Affect: congruent to mood Thought Process: circumstantial Thought Content: denies HI/SI's and AVH's Motor Activity: sitting up in the bed Cognition: A/Ox 3 Insight: variable Judgment: variable Assessment and Plan Impression: Historical Dx: Bipolar/Depression/Schizophrenia. Substance Use DO ( Cocaine). Alcohol Use DO. She is perseverative about going home but she has provided different stories about her circumstances and considering her immediate return to the ER, it is recommended she be transferred to a psychiatric facility Recommendation/Plan: Continue 1013 Continue Zyprexa to 10 mg PO HS for psychotic symptoms/mood and Cogentin 0.5 mg PO HS for EPS prevention.
[2017-05-28] MEDS: COGENTIN PO SCH (22:11)
--- NOTE | 2017-05-29 16:43 | Progress Note ---
Subjective - Reason for Consult Consult date: 05/29/17 Reason for consult: follow up - Chief Complaint Chief complaint: "I said I was fine." The patient is a 41-year-old female presenting with a chief complaint of psychotic symptoms and wanting to harm herself. She presented to the ER on for similar symptoms. Today patient is calm and cooperative during assessment. She denies SI/HI's, AVH's, and depression. She denies any side effects of her medications. She minimizes the circumstances of her 2 hospital stays. No changes. She is expected to be transported to [facility] this afternoon. Mental Status Exam - Vital signs Last Vital Signs Temp 98.4 F 05/28/17 22:00 Pulse 79 05/28/17 22:00 Resp 18 05/28/17 22:00 BP 94/59 05/28/17 22:00 Pulse Ox 98 05/28/17 22:00 Assessment and Plan MSE: Appearance: calm, cooperative Behavior: regular eye contact Speech: regular rate and tone Mood: irritable Affect: congruent to mood Thought Process: circumstantial Thought Content: denies HI/SI's and AVH's Motor Activity: sitting up in the bed Cognition: A/Ox 3 Insight: variable Judgment: variable Assessment and Plan Impression: Historical Dx: Bipolar/Depression/Schizophrenia. Substance Use DO ( Cocaine). Alcohol Use DO. She is perseverative about going home but she has provided different stories about her circumstances and considering her immediate return to the ER, it is recommended she be transferred to a psychiatric facility Recommendation/Plan: Continue 1013 and proceed with transfer to [facility] Continue Zyprexa to 10 mg PO HS for psychotic symptoms/mood and Cogentin 0.5 mg PO HS for EPS prevention.
[2017-05-29 18:19] VITALS: BP 122/83
== END 2017-05-29 18:45 ==
LOC: ED 08:32 → EEVIPCON 08:32 → ED 05-29 18:45
DX: F31.9 Bipolar disorder, unspecified (principal); F10.120 Alcohol abuse with intoxication, uncomplicated; F14.10 Cocaine abuse, uncomplicated
CPT/HCPCS: 36415; 80053; 80307; 81001; 84703; 85025; 96372; 99285; G0480; J1200; J1630; J2060; 80320

== ENCOUNTER 2017-06-01 07:59 | Emergency (ER) | payer SELFPAY ==
[2017-06-01 09:03] LABS: Alanine Aminotransferase 35 units/L (7-56); Albumin 4.4 g/dL (3.9-5); Albumin/Globulin Ratio 1.4 %; Alkaline Phosphatase 87 units/L (35-129); Anion Gap 20 mmol/L; Bilirubin,Total < 0.20 mg/dL (0.1-1.2); Blood Urea Nitrogen 7 mg/dL (7-17); Calcium 9.2 mg/dL (8.4-10.2); Carbon Dioxide 25 mmol/L (22-30); Chloride 101.6 mmol/L (98-107); Glucose 109 mg/dL (65-100); Lipase 39 units/L (13-60); Potassium 4.6 mmol/L (3.6-5.0); Sodium 142 mmol/L (137-145); Total Protein 7.6 g/dL (6.3-8.2)
[2017-06-01 09:46] LABS: Basophils % (Auto) 1.2 % (0.0-1.8); Eosinophils % (Auto) 0.8 % (0.0-4.3); Hematocrit 30.3 % (30.3-42.9); Hemoglobin 9.6 gm/dl (10.1-14.3); Mean Corpuscular HGB Conc 32 % (30-34); Mean Corpuscular Volume 80 fl (79-97); Platelet Count 416 K/mm3 (140-440); Red Blood Count 3.78 M/mm3 (3.65-5.03)
[2017-06-01 09:50] LABS: Mean Corpuscular Hemoglobin 25 pg (28-32); Red Cell Distribution Width 20.2 % (13.2-15.2)
[2017-06-01 11:15] LABS: Bacteria,Urine 1+ /HPF (Negative); Bilirubin,Urine NEG (Negative); Blood,Urine NEG (Negative); Ketones,Urine NEG (Negative); Leukocyte Esterase,Urine NEG (Negative); Nitrite,Urine NEG (Negative); Protein,Urine <15 mg/dL mg/dL (Negative); RBC,Urine < 1.0 /HPF (0.0-6.0); Urobilinogen,Urine < 2.0 mg/dL (<2.0); WBC,Urine < 1.0 /HPF (0.0-6.0)
[2017-06-01] MEDS ORDERED: NACL ONE (13:52)
--- NOTE | 2017-06-01 14:37 | Cat Scan Report ---
CT SCAN OF THE ABDOMEN AND PELVIS WITH CONTRAST: HISTORY: Abdominal pain. TECHNIQUE: Helical CT in 1.25mm intervals following IV contrast. Sagittal and coronal reconstructions. FINDINGS: The liver is normal in size and is without focal defect. There are multiple large calcified gallstones within the gallbladder measuring up to 1.5 cm. The gallbladder is contracted. No biliary dilatation or inflammation. The spleen and pancreas demonstrate a normal size and attenuation with no evidence of abnormal mass. The kidneys are normal in size and position with no evidence of hydronephrosis or mass. The adrenal glands are normal. There is no intestinal obstruction or ascites. Normal appendix. The abdominal aorta is normal. The uterus and adnexa are within normal limits. There is no evidence of peritoneal air or fluid. There is no evidence of any abnormal masses or fluid collections within the pelvis. No adenopathy is identified. The bladder is normal. IMPRESSION: Cholelithiasis. No evidence for acute cholecystitis. Otherwise, unremarkable CT of the abdomen and pelvis. No acute inflammatory process is identified.
--- NOTE | 2017-06-01 14:50 | Emergency Department Report ---
ED Abdominal Pain HPI - General Chief Complaint: Abdominal Pain Stated Complaint: SORE THROAT Time Seen by Provider: 06/01/17 13:40 Source: patient Mode of arrival: Wheelchair Limitations: No Limitations - History of Present Illness MD Complaint: abdominal pain -: Gradual Location: diffuse Radiation: none Migration to: no migration Severity scale (0 -10): 7 Quality: cramping Consistency: constant Improves With: nothing Worsens With: nothing Associated Symptoms: denies other symptoms Treatments Prior to Arrival: NSAIDs - Related Data LMP (females 10-50): 1 month Previous Rx's Medication Instructions Recorded Last Taken Type Benztropine [Cogentin] 0.5 mg PO HS #30 tablet 05/23/17 05/28/17 Rx OLANzapine [ZyPREXA] 10 mg PO HS #30 tablet 05/23/17 05/28/17 Rx Allergies Allergy/AdvReac Type Severity Reaction Status Date / Time No Known Allergies Allergy Unverified 01/19/15 14:28 ED Review of Systems ROS: Stated complaint: SORE THROAT Other details as noted in HPI Comment: All other systems reviewed and negative Cardiovascular: chest pain Gastrointestinal: abdominal pain Musculoskeletal: back pain Skin: as per HPI Neurological: headache Psychiatric: as per HPI Hematological/Lymphatic: as per HPI ED Past Medical Hx - Past Medical History Previous Medical History?: Yes Hx Seizures: Yes Hx Psychiatric Treatment: Yes (Bipolar and depression) - Surgical History Past Surgical History?: Yes Hx Appendectomy: Yes - Family History Family history: hypertension - Social History Smoking Status: Current Every Day Smoker Substance Use Type: None - Medications Home Medications: Home Medications Medication Instructions Recorded Confirmed Last Taken Type Benztropine [Cogentin] 0.5 mg PO HS #30 tablet 05/23/17 05/28/17 05/28/17 Rx OLANzapine [ZyPREXA] 10 mg PO HS #30 tablet 05/23/17 05/28/17 05/28/17 Rx ED Physical Exam - General Limitations: No Limitations General appearance: alert, anxious - Head Head exam: Present: atraumatic - Eye Eye exam: Present: normal appearance - ENT ENT exam: Present: normal exam - Neck Neck exam: Present: normal inspection - Respiratory Respiratory exam: Present: normal lung sounds bilaterally - Cardiovascular Cardiovascular Exam: Present: regular rate, normal rhythm - GI/Abdominal GI/Abdominal exam: Present: soft - Rectal Rectal exam: Present: other (patient refused) - Extremities Exam Extremities exam: Present: normal inspection - Back Exam Back exam: Present: normal inspection - Neurological Exam Neurological exam: Present: alert, oriented X3 - Psychiatric Psychiatric exam: Present: normal affect - Skin Skin exam: Present: warm, dry ED Course Vital Signs 06/01/17 06/01/17 08:10 11:35 Temperature 98.7 F 98.5 F Pulse Rate 105 H 98 H Respiratory 20 Rate Blood Pressure 121/86 Blood Pressure 132/85 [Left] O2 Sat by Pulse 98 100 Oximetry ED Medical Decision Making - Lab Data Result diagrams: 06/01/17 08:21 06/01/17 08:21 Critical care attestation.: If time is entered above; I have spent that time in minutes in the direct care of this critically ill patient, excluding procedure time. ED Disposition Clinical Impression: Abdominal pain Disposition: DC-01 TO HOME OR SELFCARE Is pt being admited?: No Does the pt Need Aspirin: No Condition: Stable Instructions: Abdominal Pain (ED) Referrals: PRIMARY CARE, [Primary Care Provider] - 3-5 Days
[2017-06-01] MEDS ORDERED: ULTRAM PO ONE (15:06)
[2017-06-01 15:45] VITALS: BP 122/68
== END 2017-06-01 15:46 | disposition home or self-care (01) ==
LOC: ED 07:59
DX: R10.84 Generalized abdominal pain (principal); F31.9 Bipolar disorder, unspecified; F17.200 Nicotine dependence, unspecified, uncomplicated
CPT/HCPCS: 36415; 74177; 80053; 81001; 83690; 85025; 99284; Q9967

== ENCOUNTER 2018-05-05 11:18 | Emergency (ER) | payer OTHER ==
[2018-05-05 11:33] VITALS: BP 143/91
== END 2018-05-05 12:18 | disposition left against medical advice (07) ==
LOC: ED 11:18
DX: M54.2 Cervicalgia (principal); Z53.21 Procedure and treatment not carried out due to patient leaving prior to being seen by health care provider

== ENCOUNTER 2021-08-09 03:51 | Inpatient (IN) | payer OTHER ==
[2021-08-09] MEDS ORDERED: DEXTROSE 50% IN WATER (25GM) 50 ML SYRINGE IV PRN (04:44)
[2021-08-09] MEDS ORDERED: SODIUM CHLORIDE 0.9% 1000 ML 1,000 ML IV ONE ×2 (04:45→07:56)
--- NOTE | 2021-08-09 05:07 | Emergency Department Report ---
Blank Doc - Documentation Documentation: 46-year-old female the past medical history of diabetes presents to the hospital with alteration mental status and hyperglycemia as per triage staff patient was dropped off by her . She apparently took Humalog insulin 15 units prior to arrival. Glucose high upon arrival. Patient is lethargic with tachypnea. Oriented to self and age. DKA order set and additional labs ordered EKG IV fluid bolus Insulin drip ordered Patient to be further evaluated by oncoming provider
[2021-08-09 05:11] LABS: Mean Corpuscular HGB Conc 31 % (30-34); Mean Corpuscular Volume 104 fl (79-97); Platelet Count 258 K/mm3 (140-440); Red Blood Count 4.27 M/mm3 (3.65-5.03); Red Cell Distribution Width 14.3 % (13.2-15.2)
[2021-08-09 05:19] LABS: Hematocrit 44.6 % (30.3-42.9); Hemoglobin 13.7 gm/dl (10.1-14.3)
[2021-08-09 05:24] LABS: Calcium 10.2 mg/dL (8.4-10.2)
[2021-08-09 05:31] LABS: Alanine Aminotransferase 9 units/L (7-56); Albumin 4.7 g/dL (3.9-5)
--- NOTE | 2021-08-09 05:37 | XRay Report ---
CHEST 1 VIEW 08/09/2021 4:30 AM INDICATION / CLINICAL INFORMATION: Tachypnea. COMPARISON: None available. FINDINGS: SUPPORT DEVICES: None. HEART / MEDIASTINUM: No significant abnormality. LUNGS / PLEURA: Bilateral lower lobe opacities/infiltrates left greater than right No pneumothorax. Signer Name: Dante Maurice MD Signed: 08/09/2021 5:32 AM Workstation Name: [id number]
[2021-08-09 05:45] LABS: Bilirubin,Direct < 0.2 mg/dL (0-0.2)
[2021-08-09] MEDS ORDERED: AZITHROMYCIN/NS 500 MG/250 ML 500 MG/250 ML BAG IV ONE (05:45)
[2021-08-09] MEDS ORDERED: cefTRIAXone/NS 2 GM/100 ML 2 GM/100 ML BAG IV ONE (05:45)
[2021-08-09 05:56] LABS: Anisocytosis 1+; Band Neutrophils # (Manual) 0.1 K/mm3; Total Cells Counted 200
[2021-08-09 05:57] LABS: Platelet Estimate Consistent w Auto
[2021-08-09] MEDS: INSULIN REGULAR, HUMAN 100 UNITS in SODIUM CHLORIDE 0.9% 99 ML IV SCH ×2 (06:05→21:14)
--- NOTE | 2021-08-09 06:18 | Emergency Department Report ---
ED General Adult HPI - General Chief complaint: Altered Mental Status Stated complaint: altered mental status PUI?: Yes Time Seen by Provider: 08/09/21 04:37 Source: patient, RN notes reviewed, old records reviewed Mode of arrival: Stretcher Limitations: Altered Mental Status, Physical Limitation - History of Present Illness Initial comments: The patient was evaluated in the emergency department for symptoms described in the history of present illness. He/she was evaluated in the context of the global COVID-19 pandemic, which necessitated consideration that the patient might be at risk for infection with the virus that causes COVID-19. Institutional protocols and algorithms that pertain to the evaluation of patients at risk for COVID-19 are in a state of rapid change based on information released by regulatory bodies including the CDC and federal and state organizations. These policies and algorithms were followed during the patient's care in the emergency department. Please note that these policies, procedures and recommendations changed on a rapid basis. The patient is a 46-year-old female. The patient presents to the ER weak, and altered. The patient is not accompanied by friends or family at this time for collateral information or additional information. The patient is awake, and moving 4 extremities. However, she is acutely altered, her last known well time is not known, she is not able to describe the exacerbating, relieving or aggravating factors. In the emergency room, she was found to be hypothermic, with evidence of diabetic ketoacidosis, dehydration, pseudohyponatremia, and chest x-ray showed bibasilar infiltrates. The patient was started on the DKA protocol, as well as the Covid pathway. No additional history is available at this time. - Related Data Previous Rx's Medication Instructions Recorded Last Taken Type Benztropine [Cogentin] 0.5 mg PO HS #30 tablet 05/23/17 05/28/17 Rx OLANzapine [ZyPREXA] 10 mg PO HS #30 tablet 05/23/17 05/28/17 Rx Hyoscyamine Subl [Levsin Sl 0.125 0.125 mg PO Q6HR PRN #15 tablet 06/01/17 Unknown Rx TAB] Folic Acid 1 mg PO DAILY #30 tablet 05/22/20 Unknown Rx Multivitamin 1 each PO DAILY #30 tablet 05/22/20 Unknown Rx Ondansetron [Zofran Odt] 4 mg PO Q8HR #15 tab.rapdis 05/22/20 Unknown Rx Thiamine [Vitamin B-1] 100 mg PO QDAY #30 tablet 05/22/20 Unknown Rx Allergies Allergy/AdvReac Type Severity Reaction Status Date / Time No Known Allergies Allergy Verified 05/22/20 12:27 ED Review of Systems ROS: Stated complaint: LOW BLOOD SUGAR Other details as noted in HPI Comment: Unobtainable due to pts medical conditions ED Past Medical Hx - Past Medical History Previous Medical History?: Yes Hx Seizures: Yes Hx Psychiatric Treatment: Yes (Bipolar and depression) Additional medical history: PANCREATITIS - Surgical History Past Surgical History?: Yes Hx Appendectomy: Yes - Social History Smoking Status: Current Every Day Smoker (1/5 pack/day) Substance Use Type: None (Occasional) - Medications Home Medications: Home Medications Medication Instructions Recorded Confirmed Last Taken Type Benztropine [Cogentin] 0.5 mg PO HS #30 tablet 05/23/17 05/28/17 05/28/17 Rx OLANzapine [ZyPREXA] 10 mg PO HS #30 tablet 05/23/17 05/28/17 05/28/17 Rx Hyoscyamine Subl [Levsin Sl 0.125 0.125 mg PO Q6HR PRN #15 tablet 06/01/17 Unknown Rx TAB] Folic Acid 1 mg PO DAILY #30 tablet 05/22/20 Unknown Rx Multivitamin 1 each PO DAILY #30 tablet 05/22/20 Unknown Rx Ondansetron [Zofran Odt] 4 mg PO Q8HR #15 tab.rapdis 05/22/20 Unknown Rx Thiamine [Vitamin B-1] 100 mg PO QDAY #30 tablet 05/22/20 Unknown Rx ED Physical Exam - General Limitations: Altered Mental Status General appearance: other (The patient is awake and tachypneic) - Head Head exam: Present: atraumatic, normocephalic - Eye Eye exam: Present: normal appearance, EOMI - ENT ENT exam: Present: normal orophraynx, mucous membranes dry, normal external ear exam - Neck Neck exam: Present: normal inspection, full ROM. Absent: tenderness, meningismus - Respiratory Respiratory exam: Present: accessory muscle use, decreased breath sounds. Absent: respiratory distress, wheezes, rales, rhonchi, stridor - Cardiovascular Cardiovascular Exam: Present: normal rhythm, tachycardia, normal heart sounds. Absent: bradycardia, irregular rhythm, systolic murmur, diastolic murmur, rubs, gallop - GI/Abdominal GI/Abdominal exam: Present: soft. Absent: distended, tenderness, guarding, rebound, rigid, pulsatile mass - Extremities Exam Extremities exam: Present: normal inspection, full ROM, other (2+ pulses noted in the bilateral upper and lower extremities. There is no palpable cord. negative Homans sign. Muscular compartments are soft. The pelvis is stable.). Absent: pedal edema, calf tenderness - Back Exam Back exam: Present: normal inspection. Absent: tenderness, CVA tenderness (R), CVA tenderness (L), paraspinal tenderness, vertebral tenderness - Neurological Exam Neurological exam: Present: altered (The patient is awake. The patient is breathing spontaneously. The patient is moving 4 extremities. Detailed neurologic examination not possible secondary to encephalopathy, and altered mental status.) - Psychiatric Psychiatric exam: Present: anxious - Skin Skin exam: Present: warm, dry, intact, normal color. Absent: rash ED Course Vital Signs 08/09/21 08/09/21 08/09/21 05:05 05:08 05:15 Temperature Pulse Rate 106 H 106 H 104 H Respiratory 18 32 H 35 H Rate Blood Pressure Blood Pressure 114/71 [Right] O2 Sat by Pulse 97 98 98 Oximetry 08/09/21 08/09/21 08/09/21 05:31 05:45 06:01 Temperature 89.7 F L Pulse Rate 100 H 101 H 107 H Respiratory 29 H 30 H 37 H Rate Blood Pressure 120/80 160/130 Blood Pressure [Right] O2 Sat by Pulse 98 96 95 Oximetry 08/09/21 08/09/21 08/09/21 06:15 06:31 07:20 Temperature Pulse Rate 104 H 103 H Respiratory 19 18 Rate Blood Pressure 141/120 142/112 Blood Pressure [Right] O2 Sat by Pulse 98 99 97 Oximetry - Reevaluation(s) Reevaluation #1: 08/09/21 07:43 Differential diagnosis, including but not limited to: Pneumonia, urinary tract infection, COVID-19, DKA, dehydration, electrolyte derangement, thyroid derangement Assessment and plan: 46-year-old female with encephalopathy, ruling in for systemic inflammatory response syndrome. She is awake but altered, tachypneic, demonstrating Kussmal respirations, and is found to be hypothermic and tachycardic with leukocytosis. She is not hypoxic. Noncontrast CT scan of the brain to my interpretation appears to show no acute findings. Place patient on isolation, start patient on fluids, insulin therapy, and empiric antibiotics. Appreciate the patient is ruling for systemic inflammatory response syndrome. Given obvious dehydration, continue fluids, 30 cc/kg bolus. Not hypoxic, does not require steroids. Patient also placed on active patient rewarming TSH acceptable at this time. Serum toxicology study unremarkable. Urinalysis, urine drug screen pending. Patient requires admission to the critical care unit for DKA, metabolic acidosis, and acute encephalopathy. There are no meningeal signs, she is not febrile, altered mental status likely toxic metabolic, with possible superimposed Covid symptomatology. Hospital physician, Dr. Deanna Nagy to admit to [facility] Have placed a page out to critical care to arrange placement in the intensive care unit. We are awaiting callback 08/09/21 07:49 08/09/21 07:55 Reevaluation #2: 08/09/21 08:[address] scan of the brain negative for acute findings. EKG repeated at 07: 50 3 AM Sinus rhythm, tachycardia, rate 117 bpm. Normal axis, normal P wave axis, high left ventricular voltage. QTC 566 ms. Nonspecific T wave abnormalities. Abnormal EKG. Not a STEMI. Motion artifact is improved compared to prior EKG. - Consultations Consultation #1: 08/09/21 08:00 Discussed history, physical, laboratory studies and imaging studies and plan of care with critical care physician, Dr. Rosario. Agrees with placement into the intensive care unit. Noncontrast CT scan of the brain is negative for acute findings. ED Medical Decision Making - Lab Data Result diagrams: 08/09/21 04:48 08/09/21 06:04 Vital Signs 08/09/21 08/09/21 05:05 05:45 Temperature 89.7 F L Pulse Rate 106 H Respiratory 18 Rate Blood Pressure 114/71 [Right] O2 Sat by Pulse 97 Oximetry Lab Results 08/09/21 08/09/21 08/09/21 Range/Units 04:48 04:48 04:48 WBC (4.5-11.0) K/mm3 RBC (3.65-5.03) M/mm3 Hgb (10.1-14.3) gm/dl Hct (30.3-42.9) % MCV (79-97) fl MCH (28-32) pg MCHC (30-34) % RDW (13.2-15.2) % Plt Count (140-440) K/mm3 [place] % (Auto) Lymph # (Auto) Add Manual Diff Total Counted Seg Neutrophils % Seg Neuts % (Manual) (40.0-70.0) % Band Neutrophils % % Lymphocytes % (Manual) (13.4-35.0) % Monocytes % (Manual) (0.0-7.3) % Nucleated RBC % Seg Neutrophils # Man (1.8-7.7) K/mm3 Band Neutrophils # K/mm3 Lymphocytes # (Manual) (1.2-5.4) K/mm3 Abs React Lymphs (Man) K/mm3 Monocytes # (Manual) (0.0-0.8) K/mm3 Eosinophils # (Manual) (0.0-0.4) K/mm3 Basophils # (Manual) (0.0-0.1) K/mm3 Metamyelocytes # K/mm3 Myelocytes # K/mm3 Promyelocytes # K/mm3 Blast Cells # K/mm3 WBC Morphology Hypersegmented Neuts Hyposegmented Neuts Hypogranular Neuts Smudge Cells Toxic Granulation Toxic Vacuolation Dohle Bodies Pelger-Huet Anomaly Casey Rods Platelet Estimate Clumped Platelets Plt Clumps, EDTA Large Platelets Giant Platelets Platelet Satelliting Plt Morphology Comment RBC Morphology Dimorphic RBCs Polychromasia Hypochromasia Poikilocytosis Anisocytosis Microcytosis Macrocytosis Spherocytes Pappenheimer Bodies Sickle Cells Target Cells Tear Drop Cells Ovalocytes Helmet Cells Heard-[place] Bodies [place] Rings [place] Cells Bite Cells Crenated Cell Elliptocytes Acanthocytes (Spur) Rouleaux Hemoglobin C Crystals Schistocytes Malaria parasites Jon Bodies Hem Pathologist Commnt VBG pH (7.320-7.420) Sodium 120 L (137-145) mmol/L Potassium 3.7 (3.6-5.0) mmol/L Chloride 80.1 L (98-107) mmol/L Carbon Dioxide 5 L* (22-30) mmol/L Anion Gap 39 mmol/L BUN 33 H (7-17) mg/dL Creatinine 1.2 (0.6-1.2) mg/dL Estimated GFR 49 ml/min BUN/Creatinine Ratio 28 % Glucose 787 H* (65-100) mg/dL Calcium 10.2 (8.4-10.2) mg/dL Phosphorus 5.00 H (2.5-4.5) mg/dL Magnesium 2.40 H (1.7-2.3) mg/dL Total Bilirubin 0.20 (0.1-1.2) mg/dL Direct Bilirubin < 0.2 (0-0.2) mg/dL Indirect Bilirubin 0.0 mg/dL AST 32 (5-40) units/L ALT 9 (7-56) units/L Alkaline Phosphatase 167 H (35-129) units/L Troponin T (0.00-0.029) ng/mL Total Protein 7.8 (6.3-8.2) g/dL Albumin 4.7 (3.9-5) g/dL Albumin/Globulin Ratio 1.5 % Plasma/Serum Alcohol < 0.01 (0-0.07) % 08/09/21 08/09/21 08/09/21 Range/Units 04:48 04:48 04:48 WBC 25.8 H (4.5-11.0) K/mm3 RBC 4.27 (3.65-5.03) M/mm3 Hgb 13.7 (10.1-14.3) gm/dl Hct 44.6 H (30.3-42.9) % MCV 104 H (79-97) fl MCH 32 (28-32) pg MCHC 31 (30-34) % RDW 14.3 (13.2-15.2) % Plt Count 258 (140-440) K/mm3 [place] % (Auto) Disease Case Manager Lymph # (Auto) Disease Case Manager Add Manual Diff Complete Total Counted 200 Seg Neutrophils % Disease Case Manager Seg Neuts % (Manual) 87.0 H (40.0-70.0) % Band Neutrophils % 0.5 % Lymphocytes % (Manual) 4.5 L (13.4-35.0) % Monocytes % (Manual) 8.0 H (0.0-7.3) % Nucleated RBC % Not Reportable Seg Neutrophils # Man 22.4 H (1.8-7.7) K/mm3 Band Neutrophils # 0.1 K/mm3 Lymphocytes # (Manual) 1.2 (1.2-5.4) K/mm3 Abs React Lymphs (Man) 0.0 K/mm3 Monocytes # (Manual) 2.1 H (0.0-0.8) K/mm3 Eosinophils # (Manual) 0.0 (0.0-0.4) K/mm3 Basophils # (Manual) 0.0 (0.0-0.1) K/mm3 Metamyelocytes # 0.0 K/mm3 Myelocytes # 0.0 K/mm3 Promyelocytes # 0.0 K/mm3 Blast Cells # 0.0 K/mm3 WBC Morphology Not Reportable Hypersegmented Neuts Not Reportable Hyposegmented Neuts Not Reportable Hypogranular Neuts Not Reportable Smudge Cells Not Reportable Toxic Granulation Not Reportable Toxic Vacuolation Not Reportable Dohle Bodies Not Reportable Pelger-Huet Anomaly Not Reportable Casey Rods Not Reportable Platelet Estimate Consistent w auto Clumped Platelets Not Reportable Plt Clumps, EDTA Not Reportable Large Platelets Not Reportable Giant Platelets Not Reportable Platelet Satelliting Not Reportable Plt Morphology Comment Not Reportable RBC Morphology Not Reportable Dimorphic RBCs Not Reportable Polychromasia Not Reportable Hypochromasia Not Reportable Poikilocytosis Not Reportable Anisocytosis 1+ Microcytosis Not Reportable Macrocytosis Not Reportable Spherocytes Not Reportable Pappenheimer Bodies Not Reportable Sickle Cells Not Reportable Target Cells Not Reportable Tear Drop Cells Not Reportable Ovalocytes Not Reportable Helmet Cells Not Reportable Heard-[place] Bodies Not Reportable [place] Rings Not Reportable Chente Cells Not Reportable Bite Cells Not Reportable Crenated Cell Not Reportable Elliptocytes Not Reportable Acanthocytes (Spur) Not Reportable Rouleaux Not Reportable Hemoglobin C Crystals Not Reportable Schistocytes Not Reportable Malaria parasites Not Reportable Ojn Bodies Not Reportable Hem Pathologist Commnt No VBG pH 7.035 L* (7.320-7.420) Sodium (137-145) mmol/L Potassium (3.6-5.0) mmol/L Chloride (98-107) mmol/L Carbon Dioxide (22-30) mmol/L Anion Gap mmol/L BUN (7-17) mg/dL Creatinine (0.6-1.2) mg/dL Estimated GFR ml/min BUN/Creatinine Ratio % Glucose (65-100) mg/dL Calcium (8.4-10.2) mg/dL Phosphorus (2.5-4.5) mg/dL Magnesium (1.7-2.3) mg/dL Total Bilirubin (0.1-1.2) mg/dL Direct Bilirubin (0-0.2) mg/dL Indirect Bilirubin mg/dL AST (5-40) units/L ALT (7-56) units/L Alkaline Phosphatase (35-129) units/L Troponin T < 0.010 (0.00-0.029) ng/mL Total Protein (6.3-8.2) g/dL Albumin (3.9-5) g/dL Albumin/Globulin Ratio % Plasma/Serum Alcohol (0-0.07) % - EKG Data -: EKG Interpreted by Md EKG shows normal: sinus rhythm Rate: tachycardia - EKG Data 08/09/21 07:41 EKG interpreted at 05: 42 Sinus rhythm, tachycardia, rate 102 bpm. High left ventricular voltage, and motion artifact. QTC 44 ms. Abnormal EKG. Limited by motion artifact. Not a STEMI. - Radiology Data Radiology results: pending, report reviewed, image reviewed CHEST 1 VIEW 08/09/2021 4:30 AM INDICATION / CLINICAL INFORMATION: Tachypnea. COMPARISON: None available. FINDINGS: SUPPORT DEVICES: None. HEART / MEDIASTINUM: No significant abnormality. LUNGS / PLEURA: Bilateral lower lobe opacities/infiltrates left greater than right No pneumothorax. Signer Name: Dante Maurice MD Signed: 08/09/2021 4:32 AM Workstation Name: [id number] Critical Care Time: Yes Critical care time in (mins) excluding proc time.: 35 Critical care attestation.: If time is entered above; I have spent that time in minutes in the direct care of this critically ill patient, excluding procedure time. ED Disposition Clinical Impression: DKA (diabetic ketoacidosis), Acute encephalopathy, Hypothermia, SIRS (systemic inflammatory response syndrome) Disposition: ADMITTED INPATIENT Is pt being admited?: Yes Does the pt Need Aspirin: No Condition: Critical Instructions: Diabetic Ketoacidosis (ED) Referrals: PRIMARY CARE, [Primary Care Provider] - 3-5 Days
[2021-08-09 06:39] LABS: BUN/Creatinine Ratio 32; Blood Urea Nitrogen 32 mg/dL (7-17); Calcium 8.8 mg/dL (8.4-10.2); Hemolysis Index 8
[2021-08-09 06:42] LABS: C-Reactive Protein 2.9 mg/dL (0.00-1.30)
--- NOTE | 2021-08-09 07:54 | Cat Scan Report ---
CT HEAD WITHOUT CONTRAST INDICATION / CLINICAL INFORMATION: Altered Mental Status. TECHNIQUE: All CT scans at this location are performed using CT dose reduction for ALARA by means of automated e xposure control. COMPARISON: 12/20/2016 FINDINGS: No acute intracranial hemorrhage. Ventricles are normal in size without midline shift or mass effect. No extra-axial fluid collection is seen. Visualized orbits appear normal ADDITIONAL FINDINGS: None. IMPRESSION: 1. No acute intracranial abnormality. If there is concern for acute ischemic change MRI with diffusio n could be performed. Signer Name: Dante Maurice MD Signed: 08/09/2021 7:50 AM Workstation Name: [id number]
[2021-08-09] MEDS ORDERED: IBUPROFEN 600 MG TAB PO PRN (09:19)
[2021-08-09] MEDS ORDERED: HYDROcodone/ACETAMINOPHEN 5-325 MG TAB PO PRN (09:19)
[2021-08-09] MEDS ORDERED: MORPHINE 4 MG/1 ML INJ IV PRN (09:19)
[2021-08-09 09:54] LABS: Blood Urea Nitrogen 25 mg/dL (7-17); Calcium 8.1 mg/dL (8.4-10.2); Hemolysis Index 121
[2021-08-09] MEDS ORDERED: D5W/0.45% NACL/KCL 20 MEQ 20 MEQ/1,000 ML BAG IV SCH (10:00)
[2021-08-09] MEDS: POTASSIUM CHLORIDE 10 MEQ 10 MEQ/100 ML BAG IV SCH ×6 (10:05→16:43)
[2021-08-09 10:20] LABS: BUN/Creatinine Ratio 36
[2021-08-09 11:11] LABS: Blood Urea Nitrogen 22 mg/dL (7-17); Calcium 8.8 mg/dL (8.4-10.2); Hemolysis Index 4
[2021-08-09 11:12] LABS: BUN/Creatinine Ratio 31
[2021-08-09 12:48] LABS: Blood Urea Nitrogen 21 mg/dL (7-17); Calcium 8.9 mg/dL (8.4-10.2); Hemolysis Index 20
[2021-08-09 12:50] LABS: BUN/Creatinine Ratio 30
--- NOTE | 2021-08-09 13:27 | History and Physical Report ---
History of Present Illness Date of examination: 08/09/21 Date of admission: 08/09/21 09:19 Chief complaint: ams History of present illness: This is a 46-year-old female with EtOH dependence, chronic pancreatitis, history of cocaine use, current tobacco abuse, bipolar/depression who presents to the emergency department for altered mental status. Work-up in the emergency department revealed hypothermia, lab work consistent with diabetic ketoacidosis including dehydration, hyponatremia, leukocytosis, hypokalemia, hyponatremia, and CXR showed bibasilar infiltrates. Patient made a COVID-19 PUI Covid PCR pending. Information obtained from chart review and minimal information provided by significant other via phone. Patient initiated on DKA protocol admitted to the hospitalist service with consults to Pulm/CCM and ID. Unable to obtain HPI/ROS/CODE STATUS due to altered mental status. Past History Past Medical History: diabetes, other (Bipolar, depression, chronic pancreatitis, nicotine abuse) Past Surgical History: cholecystectomy Social history: single, Lives alone, smoking, alcohol abuse, full code Family history: diabetes Medications and Allergies Allergies Allergy/AdvReac Type Severity Reaction Status Date / Time No Known Allergies Allergy Verified 05/22/20 12:27 Home Medications Medication Instructions Recorded Confirmed Last Taken Type Benztropine [Cogentin] 0.5 mg PO HS #30 tablet 05/23/17 05/28/17 05/28/17 Rx OLANzapine [ZyPREXA] 10 mg PO HS #30 tablet 05/23/17 05/28/17 05/28/17 Rx Hyoscyamine Subl [Levsin Sl 0.125 0.125 mg PO Q6HR PRN #15 tablet 06/01/17 Unknown Rx TAB] Folic Acid 1 mg PO DAILY #30 tablet 05/22/20 Unknown Rx Multivitamin 1 each PO DAILY #30 tablet 05/22/20 Unknown Rx Ondansetron [Zofran Odt] 4 mg PO Q8HR #15 tab.rapdis 05/22/20 Unknown Rx Thiamine [Vitamin B-1] 100 mg PO QDAY #30 tablet 05/22/20 Unknown Rx Active Meds: Active Medications Hydrocodone Bitart/Acetaminophen (Hydrocodone/Acetaminophen 5-325 Mg Tab) 2 each PO Q6H PRN PRN Reason: Pain, Moderate (4-6) Dextrose (Dextrose 50% In Water (25gm) 50 Ml Syringe) 0 ml IV Q30MIN PRN; Protocol PRN Reason: Hypoglycemia Insulin Human Regular 100 (units/ Sodium Chloride) 100 mls @ 1 mls/hr IV TITR S ; Protocol Last Titration: 08/09/21 11:54 Dose: 1.5 units/hr, 1.5 mls/hr Documented by: Potassium Chloride/Dextrose/Sod Cl (D5w/0.45% Nacl/Kcl 20 Meq) 20 meq in 1,000 mls @ 125 mls/hr IV DIRECT MIGUEL ANGEL Last Admin: 08/09/21 13:17 Dose: 125 mls/hr Documented by: Potassium Chloride (Kcl 10meq/100ml) 10 meq in 100 mls @ 100 mls/hr IV Q1H MIGUEL ANGEL Stop: 08/09/21 13:59 Last Admin: 08/09/21 12:20 Dose: 100 mls/hr Documented by: Potassium Chloride (Kcl 10meq/100ml) 10 meq in 100 mls @ 100 mls/hr IV Q1H MIGUEL ANGEL Stop: 08/09/21 15:59 Ceftriaxone Sodium (Rocephin/Ns 2 Gm/100 Ml) 2 gm in 100 mls @ 200 mls/hr IV Q24H MIGUEL ANGEL; Protocol Stop: 08/14/21 05:59 Azithromycin (Zithromax/Ns) 500 mg in 250 mls @ 250 mls/hr IV Q24H MIGUEL ANGEL Stop: 08/14/21 06:59 Ibuprofen (Ibuprofen 600 Mg Tab) 600 mg PO Q6H PRN PRN Reason: Pain, Mild (1-3) Morphine Sulfate (Morphine 4 Mg/1 Ml Inj) 4 mg IV Q4H PRN PRN Reason: Pain , Severe (7-10) Sodium Chloride (Sodium Chloride 0.9% 10 Ml Flush Syringe) 10 ml IV BID [facility] Last Admin: 08/09/21 11:13 Dose: 10 ml Documented by: Sodium Chloride (Sodium Chloride 0.9% 10 Ml Flush Syringe) 10 ml IV PRN PRN PRN Reason: LINE FLUSH Review of Systems ROS unobtainable: due to mental status Exam - Constitutional Vitals: Temp Pulse Resp BP Pulse Ox 95.7 F L 115 H 33 H 140/80 99 08/09/21 10:14 08/09/21 11:15 08/09/21 11:15 08/09/21 11:15 08/09/21 11:15 General appearance: Present: mild distress, cachectic - EENT Eyes: Present: EOM intact ENT: clear oral mucosa - Neck Neck: Present: normal ROM - Respiratory Respiratory effort: normal Respiratory: bilateral: diminished - Cardiovascular Rhythm: regular Heart Sounds: Present: S1 & S2. Absent: systolic murmur, diastolic murmur - Extremities Extremities: no ischemia, pulses intact, pulses symmetrical, No edema, normal temperature, normal color Peripheral Pulses: within normal limits - Abdominal General gastrointestinal: Present: soft, non-tender, non-distended, normal bowel sounds - Integumentary Integumentary: Present: warm, dry - Musculoskeletal Musculoskeletal: generalized weakness - Psychiatric Psychiatric: other (Patient is only oriented to self, opens eyes to verbal and tactile stimuli, does not follow commands) - Neurologic Neurologic: other (Patient is only oriented to self, opens eyes to verbal and tactile stimuli, does not follow commands) - Allied Health Allied health notes reviewed: nursing, RT, social work HEART Score - HEART Score History: Slightly suspicious EKG: Non-specific Age: < 45 Risk factors: 1-2 risk factors Troponin: Troponin T < 0.010 ng/mL (0.00-0.029) 08/09/21 04:48 Troponin: < normal limit HEART Score: 2 Results - Labs CBC & Chem 7: 08/09/21 04:48 08/09/21 12:16 Labs: Laboratory Last Values WBC 25.8 K/mm3 (4.5-11.0) H 08/09/21 04:48 RBC 4.27 M/mm3 (3.65-5.03) 08/09/21 04:48 Hgb 13.7 gm/dl (10.1-14.3) 08/09/21 04:48 Hct 44.6 % (30.3-42.9) H 08/09/21 04:48 MCV 104 fl (79-97) H 08/09/21 04:48 MCH 32 pg (28-32) 08/09/21 04:48 MCHC 31 % (30-34) 08/09/21 04:48 RDW 14.3 % (13.2-15.2) 08/09/21 04:48 Plt Count 258 K/mm3 (140-440) 08/09/21 04:48 [place] % (Auto) Wet Machine Tender 08/09/21 04:48 Lymph # (Auto) Wet Machine Tender 08/09/21 04:48 Add Manual Diff Complete 08/09/21 04:48 Total Counted 200 08/09/21 04:48 Seg Neutrophils % Wet Machine Tender 08/09/21 04:48 Seg Neuts % (Manual) 87.0 % (40.0-70.0) H 08/09/21 04:48 Band Neutrophils % 0.5 % 08/09/21 04:48 Lymphocytes % (Manual) 4.5 % (13.4-35.0) L 08/09/21 04:48 Monocytes % (Manual) 8.0 % (0.0-7.3) H 08/09/21 04:48 Nucleated RBC % Not Reportable 08/09/21 04:48 Seg Neutrophils # Man 22.4 K/mm3 (1.8-7.7) H 08/09/21 04:48 Band Neutrophils # 0.1 K/mm3 08/09/21 04:48 Lymphocytes # (Manual) 1.2 K/mm3 (1.2-5.4) 08/09/21 04:48 Abs React Lymphs (Man) 0.0 K/mm3 08/09/21 04:48 Monocytes # (Manual) 2.1 K/mm3 (0.0-0.8) H 08/09/21 04:48 Eosinophils # (Manual) 0.0 K/mm3 (0.0-0.4) 08/09/21 04:48 Basophils # (Manual) 0.0 K/mm3 (0.0-0.1) 08/09/21 04:48 Metamyelocytes # 0.0 K/mm3 08/09/21 04:48 Myelocytes # 0.0 K/mm3 08/09/21 04:48 Promyelocytes # 0.0 K/mm3 08/09/21 04:48 Blast Cells # 0.0 K/mm3 08/09/21 04:48 WBC Morphology Not Reportable 08/09/21 04:48 Hypersegmented Neuts Not Reportable 08/09/21 04:48 Hyposegmented Neuts Not Reportable 08/09/21 04:48 Hypogranular Neuts Not Reportable 08/09/21 04:48 Smudge Cells Not Reportable 08/09/21 04:48 Toxic Granulation Not Reportable 08/09/21 04:48 Toxic Vacuolation Not Reportable 08/09/21 04:48 Dohle Bodies Not Reportable 08/09/21 04:48 Pelger-Huet Anomaly Not Reportable 08/09/21 04:48 Casey Rods Not Reportable 08/09/21 04:48 Platelet Estimate Consistent w auto 08/09/21 04:48 Clumped Platelets Not Reportable 08/09/21 04:48 Plt Clumps, EDTA Not Reportable 08/09/21 04:48 Large Platelets Not Reportable 08/09/21 04:48 Giant Platelets Not Reportable 08/09/21 04:48 Platelet Satelliting Not Reportable 08/09/21 04:48 Plt Morphology Comment Not Reportable 08/09/21 04:48 RBC Morphology Not Reportable 08/09/21 04:48 Dimorphic RBCs Not Reportable 08/09/21 04:48 Polychromasia Not Reportable 08/09/21 04:48 Hypochromasia Not Reportable 08/09/21 04:48 Poikilocytosis Not Reportable 08/09/21 04:48 Anisocytosis 1+ 08/09/21 04:48 Microcytosis Not Reportable 08/09/21 04:48 Macrocytosis Not Reportable 08/09/21 04:48 Spherocytes Not Reportable 08/09/21 04:48 Pappenheimer Bodies Not Reportable 08/09/21 04:48 Sickle Cells Not Reportable 08/09/21 04:48 Target Cells Not Reportable 08/09/21 04:48 Tear Drop Cells Not Reportable 08/09/21 04:48 Ovalocytes Not Reportable 08/09/21 04:48 Helmet Cells Not Reportable 08/09/21 04:48 [place] Bodies Not Reportable 08/09/21 04:48 [place] Rings Not Reportable 08/09/21 04:48 [place] Cells Not Reportable 08/09/21 04:48 Bite Cells Not Reportable 08/09/21 04:48 Crenated Cell Not Reportable 08/09/21 04:48 Elliptocytes Not Reportable 08/09/21 04:48 Acanthocytes (Spur) Not Reportable 08/09/21 04:48 Rouleaux Not Reportable 08/09/21 04:48 Hemoglobin C Crystals Not Reportable 08/09/21 04:48 Schistocytes Not Reportable 08/09/21 04:48 Malaria parasites Not Reportable 08/09/21 04:48 Jon Bodies Not Reportable 08/09/21 04:48 Hem Pathologist Commnt No 08/09/21 04:48 D-Dimer 1480.60 ng/mlDDU (0-234) H 08/09/21 06:04 VBG pH 7.035 (7.320-7.420) L* 08/09/21 04:48 Sodium 132 mmol/L (137-145) L 08/09/21 12:16 Potassium 3.0 mmol/L (3.6-5.0) L 08/09/21 12:16 Chloride 100.6 mmol/L (98-107) 08/09/21 12:16 Carbon Dioxide 11 mmol/L (22-30) L 08/09/21 12:16 Anion Gap 23 mmol/L 08/09/21 12:16 BUN 21 mg/dL (7-17) H 08/09/21 12:16 Creatinine 0.7 mg/dL (0.6-1.2) 08/09/21 12:16 Estimated GFR > 60 ml/min 08/09/21 12:16 BUN/Creatinine Ratio 30 % 08/09/21 12:16 Glucose 148 mg/dL (65-100) H 08/09/21 12:16 POC Glucose 144 mg/dL (70-105) H 08/09/21 11:54 Hemoglobin A1c 14.7 % (4-6) H 08/09/21 09:42 Lactic Acid 1.30 mmol/L (0.7-2.0) 08/09/21 08:54 Calcium 8.9 mg/dL (8.4-10.2) 08/09/21 12:16 Phosphorus 3.00 mg/dL (2.5-4.5) D 08/09/21 06:04 Magnesium 2.00 mg/dL (1.7-2.3) 08/09/21 06:04 Ferritin 293.3 ng/mL (10.0-200.0) H 08/09/21 06:04 Total Bilirubin 0.20 mg/dL (0.1-1.2) 08/09/21 04:48 Direct Bilirubin < 0.2 mg/dL (0-0.2) 08/09/21 04:48 Indirect Bilirubin 0.0 mg/dL 08/09/21 04:48 AST 32 units/L (5-40) 08/09/21 04:48 ALT 9 units/L (7-56) 08/09/21 04:48 Alkaline Phosphatase 167 units/L (35-129) H 08/09/21 04:48 Lactate Dehydrogenase 272 units/L (91-180) H 08/09/21 06:04 Total Creatine Kinase 42 units/L (30-135) 08/09/21 06:33 Troponin T < 0.010 ng/mL (0.00-0.029) 08/09/21 04:48 C-Reactive Protein 2.90 mg/dL (0.00-1.30) H 08/09/21 06:04 Total Protein 7.8 g/dL (6.3-8.2) 08/09/21 04:48 Albumin 4.7 g/dL (3.9-5) 08/09/21 04:48 Albumin/Globulin Ratio 1.5 % 08/09/21 04:48 TSH 0.427 mlU/mL (0.270-4.200) 08/09/21 06:33 HCG, Qual Negative (Negative) 08/09/21 06:33 Salicylates < 0.3 mg/dL (2.8-20.0) L 08/09/21 06:33 Acetaminophen 5.0 ug/mL (10.0-30.0) L 08/09/21 06:33 Plasma/Serum Alcohol < 0.01 % (0-0.07) 08/09/21 04:48 Microbiology: Microbiology 08/09/21 06:04 Peripheral/Venous Blood Culture - Preliminary Culture in Progress 08/09/21 05:52 Peripheral/Venous Blood Culture - Preliminary Culture in Progress - Imaging and Cardiology Chest x-ray: report reviewed, image reviewed CT Scan - head: report reviewed - Diagnostic Impressions Diagnostic Impressions: 08/09 CXR official read with bilateral lower lobe opacity/infiltrate left greater than right with no pneumothorax 08/09 CT head without acute intracranial abnormality Assessment and Plan Assessment and plan: This is a 46-year-old female with history of bipolar/depression, chronic pancreatitis, current nicotine abuse, alcohol abuse and history of cocaine abuse, diabetes mellitus admitted to the hospital service as a COVID-19 PUI and with DKA Neuro: Acute metabolic encephalopathy, h/o bipolar/depression, EtOH abuse -CT head shows no acute abnormality -Avoid delirium -Maintain sleep-wake cycle -Reorientation as needed -Aspiration/fall/seizure precautions -Consider MRI brain or neuro consult if no improvement with correction of metabolites -CIWA protocol -EtOH cessation counseling when appropriate -Folate, multivitamin, thiamine Cardio: ST -Patient presented with tachycardia and occasional elevated blood pressure readings -As needed hydralazine -Blood pressure monitor per protocol Respiratory: NAD, nicotine abuse -Supplemental oxygen as needed -Pulmonary hygiene -Continue SPO2 monitoring -Tobacco cessation counseling when appropriate GI: Malnutrition, chronic pancreatitis -Patient appears to be cachectic -Albumin within normal limits -BR: Senokot -Consider nutritional supplementation : Hypokalemia, hyponatremia, hypochloremia, dehydration -Replete potassium -S/p 2 L normal saline in the emergency department -MIVF -Trend BMP ID: Sepsis, leukocytosis, COVID-19 PUI, CAP -Per significant other patient was vaccinated for COVID-19 approximately 3 months ago with either Pfizer or Moderna vaccine -Patient has a history of shortness of breath, coughing and vomiting prior to presentation per significant other -Patient is tachycardic, hypothermic, tachypneic with evidence of bilateral infiltrates on CXR -COVID-19 PCR pending -Droplet/isolation precautions -COVID-19 inflammatory markers -Consider ID consultation if COVID-19 PCR positive -Currently on azithromycin and Rocephin for CAP coverage -Monitor WBC and fever curve Endo: DKA, h/o DM -DKA protocol -S/p 2 L normal saline bolus -MIVF -CC diet when able -Transition to SSI and long-acting insulin when anion gap closes -Trend BMP Heme: Leukocytosis -Trend CBC -Transfuse for hemoglobin less than 7 -Monitor for signs of infection -SCDs to BLE while in bed -Lovenox subcu The high probability of a clinically significant, sudden or life threatening deterioration of the [multi] system(s) required my full and direct attention, intervention and personal management. The aggregate critical care time was [60] minutes. This time is in addition to time spent performing reported procedures but includes the following: [x] Data Review and interpretation [x] Patient assessment and monitoring of vital signs [x] Documentation [x] Medication orders and management Advance Directives: Yes VTE prophylaxis?: Chemical, Mechanical Plan of care discussed with patient/family: Yes
[2021-08-09] MEDS ORDERED: POTASSIUM CHLORIDE 40 MEQ in DEXTROSE 10% IN WATER 1,000 ML IV SCH (14:15)
[2021-08-09 14:51] LABS: Blood Urea Nitrogen 17 mg/dL (7-17); Calcium 8.9 mg/dL (8.4-10.2); Hemolysis Index 14
[2021-08-09 15:05] LABS: BUN/Creatinine Ratio 28
[2021-08-09 15:21] LABS: Amphetamine Screen,Urine Negative; Benzodiazepines Screen,Urine Negative; Methadone Screen,Urine Negative; Opiate Screen,Urine Negative
[2021-08-09 15:27] LABS: Bacteria,Urine 1+ /HPF (Negative); Bilirubin,Urine NEG (Negative); Blood,Urine SM (Negative); Color,Urine Yellow (Yellow); Mucus,Urine FEW /HPF; Urobilinogen,Urine < 2.0 mg/dL (<2.0)
[2021-08-09 15:48] LABS: Cannabinoid Screen,Urine Positive; Cocaine Screen,Urine Positive
[2021-08-09 16:32] LABS: Blood Urea Nitrogen 15 mg/dL (7-17); Calcium 8.8 mg/dL (8.4-10.2); Hemolysis Index 15
[2021-08-09 16:33] LABS: BUN/Creatinine Ratio 30
[2021-08-09 18:36] LABS: Blood Urea Nitrogen 12 mg/dL (7-17); Calcium 8.9 mg/dL (8.4-10.2); Hemolysis Index 11
[2021-08-09 18:38] LABS: BUN/Creatinine Ratio 20
[2021-08-09] MEDS ORDERED: D5NS W/KCL 40 MEQ 40 MEQ/1,000 ML BAG IV SCH ×2 (19:00)
[2021-08-09 21:14] LABS: Blood Urea Nitrogen 11 mg/dL (7-17); Hemolysis Index 8
[2021-08-09 21:38] LABS: BUN/Creatinine Ratio 22
[2021-08-09] MEDS: SENNOSIDES/DOCUSATE SODIUM 8.6/50 MG TAB PO SCH (21:49)
[2021-08-09] MEDS ORDERED: SODIUM BICARB 8.4% 50 MEQ/50 ML SYRINGE IV ONE (22:13)
[2021-08-09] MEDS ORDERED: ONDANSETRON 4 MG/2 ML INJ IV PRN (22:33)
[2021-08-10 02:10] LABS: Blood Urea Nitrogen 9 mg/dL (7-17); Calcium 9.3 mg/dL (8.4-10.2); Hemolysis Index 13
[2021-08-10 02:22] LABS: BUN/Creatinine Ratio 23
[2021-08-10] MEDS ORDERED: POTASSIUM CHLORIDE ER 20 MEQ TAB PO ONE ×2 (02:34→06:35)
[2021-08-10 05:07] LABS: Hematocrit 35.5 % (30.3-42.9); Hemoglobin 12.3 gm/dl (10.1-14.3); Mean Corpuscular HGB Conc 35 % (30-34); Mean Corpuscular Volume 92 fl (79-97); Platelet Count 179 K/mm3 (140-440); Red Blood Count 3.88 M/mm3 (3.65-5.03); Red Cell Distribution Width 13.2 % (13.2-15.2)
[2021-08-10 05:21] LABS: Blood Urea Nitrogen 8 mg/dL (7-17); Calcium 9.1 mg/dL (8.4-10.2); Hemolysis Index 18
[2021-08-10 05:22] LABS: Calcium 9.2 mg/dL (8.4-10.2)
[2021-08-10 05:43] LABS: BUN/Creatinine Ratio 20
[2021-08-10] MEDS ORDERED: SODIUM CHLORIDE 0.9% IV ONE (06:07)
[2021-08-10] MEDS ORDERED: POTASSIUM PHOSPHATE IV ONE (06:07)
[2021-08-10 06:14] LABS: Band Neutrophils # (Manual) 0.3 K/mm3; Total Cells Counted 100
[2021-08-10 06:15] LABS: Platelet Estimate Consistent w Auto; RBC Morphology Normal
[2021-08-10] MEDS: cefTRIAXone/NS 2 GM/100 ML 2 GM/100 ML BAG IV SCH (06:26)
[2021-08-10] MEDS: AZITHROMYCIN/NS 500 MG/250 ML 500 MG/250 ML BAG IV SCH (07:37)
[2021-08-10] MEDS ORDERED: K-PHOS NEUTRAL 250 MG TAB PO SCH (07:43)
[2021-08-10] MEDS ORDERED: POTASSIUM CHLORIDE 10 MEQ 10 MEQ/100 ML BAG IV SCH (08:00)
[2021-08-10] MEDS ORDERED: PHOS-NAK POWDER PACKET PO SCH (08:00)
[2021-08-10] MEDS: D5W IV SCH (09:25)
[2021-08-10] MEDS: POTASSIUM PHOSPHATE 30 MMOL in SODIUM CHLORIDE 0.9% 500 ML 500 ML IV SCH ×2 (09:25→16:16)
[2021-08-10] MEDS: POTASSIUM CHLORIDE IV SCH (09:25)
[2021-08-10] MEDS: NACL IV SCH (09:25)
--- NOTE | 2021-08-10 09:44 | Electrocardiograph Report ---
[facility] Test Date: 2021-08-09 Test Time: 05:38:28 Pat Name: KAELYN MALDONADO Department: Room: A260 Gender: F Strip Roller: VAIBHAV : 1975 Requested By: JEROME CROOK Order Number: [id number] Reading MD: Nam Cox Measurements Intervals [place] Rate: 102 P: 129 W[place]: 145 QRS: 40 QRSD: 89 T: -36 QT: 371 QTc: 484 Interpretive Statements Sinus tachycardia Posterior infarct, old Abnormal T, consider ischemia, diffuse leads No previous ECG available for comparison Electronically Signed On 08-10-2021 9:43:47 EDT by Nam Cox
--- NOTE | 2021-08-10 09:47 | Electrocardiograph Report ---
[facility] Test Date: 2021-08-09 Test Time: 07:53:54 Pat Name: KAELYN MALDONADO Department: Room: A260 Gender: F Pass Worker: FILIBERTO : 1975 Requested By: BOGDAN FLOREZ Order Number: [id number] Reading MD: Nam Cox Measurements Intervals [place] Rate: 117 P: 19 [place]: 82 QRS: 62 QRSD: 73 T: 93 QT: 405 QTc: 566 Interpretive Statements Sinus tachycardia Left atrial enlargement Posterior infarct, old Nonspecific T abnormalities, lateral leads Prolonged QT interval Compared to ECG 08/09/2021 05:38:28 Atrial abnormality now present Prolonged QT interval now present Possible ischemia no longer present Myocardial infarct finding still present T-wave abnormality still present Electronically Signed On 08-10-2021 9:46:57 EDT by Nam Cox
[2021-08-10] MEDS: ENOXAPARIN 30 MG/0.3 ML INJ SUB-Q SCH (10:59)
[2021-08-10] MEDS: THIAMINE 100 MG TAB PO SCH (10:59)
[2021-08-10] MEDS: MULTIVITAMINS ,THERAPEUTIC TAB PO SCH (10:59)
[2021-08-10] MEDS: FOLIC ACID 1 MG TAB PO SCH (10:59)
--- NOTE | 2021-08-10 13:07 | Event Note ---
Date: 08/10/21 Patient awake and alert. States she has been out of insulin for 4 days. Hungry and ready to eat. Suggest the followin. Transition to 70/30 BID as patient has no funding 2. High dose sliding scale 3. CC diet and feed now 4. All others per primary team, from a critical care standpoint, stable for transfer out of unit.
[2021-08-10] MEDS ORDERED: DEXTROSE 50% IN WATER (25GM) 50 ML SYRINGE IV PRN (13:09)
[2021-08-10 13:56] LABS: BUN/Creatinine Ratio 20; Blood Urea Nitrogen 6 mg/dL (7-17); Calcium 8.1 mg/dL (8.4-10.2); Hemolysis Index 10
[2021-08-10] MEDS: FAMOTIDINE 20 MG TAB PO SCH ×2 (16:17→22:16)
[2021-08-10] MEDS: INSULIN LISPRO 100 UNIT/ML SUB-Q SCH ×2 (16:28→22:10)
--- NOTE | 2021-08-10 17:05 | Progress Note ---
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 Hospital Course to Date: 08/10/21- Patient gap has closed, patient transitioned to SSI ACHS with basal 70/30 insulin BID. Patient is still drowsy but more alert and following commands . Low K and phosp from this am lab, eletrolytes were repleted. D/w CCM patient is stable for transfer, transfer orders placed for Telemetry. Assessment and Plan #Neuro: Acute encephalopathy, Toxic vs Metabolic #H/o bipolar/depression, ETOH abuse - 08/09 CT head shows no acute abnormality - Patient remains drowsy, following commands - Tox screen + cocaine and THC - Ammonia level 54 - Maintain sleep-wake cycle - Reorientation as needed - Aspiration/fall/seizure precautions - Consider MRI brain or neuro consult if no improvement with correction of metabolites - CIWA protocol - EtOH cessation counseling when appropriate - Folate, multivitamin, thiamine #Cardio: Tachycardia- improved - NSR to ST on the monitor - Inflammatory marker elevated - Patient remains normotensive - Maintain adequate perfusion - Continue rehydration with cont. IVF - Bilateral doppler pending - Continue blood pressure monitor per protocol - Continue AC- Lovenox for VTE proph #Respiratory: Bilateral lower lobe infiltrates #H/o nicotine abuse - 08/09 CXR shows bilateral lower lobe opacities/infiltratres left greater than right - Remains of room air SPO2 @ 100% - As needed O2 supplument to maintain SPO2 above 95% - Tobacco cessation counseling when appropriate #GI: Malnutrition #H/o chronic pancreatitis - Patient appears to be cachectic - Albumin within normal limits - Consistent carbs diet initiated - Continue rehydration with cont. IVF - Continue BR: Senokot - Encourage PO intake - Consider nutritional supplementation if patient is eating less than 50% per meal - Continue PPI- Pepcid #: electrolytes Imbalance - Remains on insulin gtt, plan to transition to ACHS today - Low K and phos repleted - Continue rehydration with cont. IVF - Encourage PO intake - Strick intake and output - Close mononitoring of electrolytes, replete if needed - Trend BMP #ID: Possible CAP #Bilateral Lower Lobe PNA #Leukocytosis - Per significant other patient was vaccinated for COVID-19 approximately 3 months ago with either [employer] or [employer] vaccine - 08/09 CXR shows bilateral lower lobe opacities/infiltratres left greater than right - 08/09 COVID swab negative; 08/09 B.CultX2 pending - Inflammatory markers elevated, Bilateral LE pending - Leukocytosis down trending WBcs 11.6 today - Continue empirica Abx: azithromycin and Rocephin for CAP coverage - Monitor WBCs, am labs ordered #Endo: DKA, #h/o DM - On DKA protocol - Gap closed transitioned to SSI - NPH added BID - Avoid hypoglycemia The high probability of a clinically significant, sudden or life threatening deterioration of the [multi] system(s) required my full and direct attention, intervention and personal management. The aggregate critical care time was [60] minutes. This time is in addition to time spent performing reported procedures but includes the following: [x] Data Review and interpretation [x] Patient assessment and monitoring of vital signs [x] Documentation [x] Medication orders and management Disposition Plan: ICU Total Time Spent with Patient (Minutes): 60 History Interval history: Patient seen and examined at the bedside. Patient remains drowsy and confused, arousable with minimal stimuli, following simple commands. remains on RA SPO2 at 100%. No significant events overnight Hospitalist Physical - Constitutional Vitals: Temp Pulse Resp BP Pulse Ox 99 F 93 H 24 123/78 100 08/10/21 12:00 08/10/21 14:00 08/10/21 16:40 08/10/21 14:00 08/10/21 14:00 General appearance: Present: no acute distress, mild distress, cachectic - EENT Eyes: Present: PERRL ENT: hearing intact, clear oral mucosa - Neck Neck: Present: normal ROM - Respiratory Respiratory effort: normal Respiratory: bilateral: diminished - Cardiovascular Rhythm: regular Heart Sounds: Present: S1 & S2 - Extremities Extremities: no ischemia, pulses intact, pulses symmetrical, No edema Peripheral Pulses: within normal limits - Abdominal General gastrointestinal: soft, non-tender, normal bowel sounds - Integumentary Integumentary: Present: clear, warm, dry - Psychiatric Psychiatric: cooperative - Neurologic Neurologic: moves all extremities - Allied Health Allied health notes reviewed: nursing HEART Score - HEART Score EKG: Non-specific Age: < 45 Risk factors: 1-2 risk factors Troponin: Troponin T < 0.010 ng/mL (0.00-0.029) 08/09/21 04:48 Troponin: < normal limit Results - Labs CBC & Chem 7: 08/10/21 04:21 08/10/21 13:20 Labs: Laboratory Last Values WBC 11.6 K/mm3 (4.5-11.0) H 08/10/21 04:21 RBC 3.88 M/mm3 (3.65-5.03) 08/10/21 04:21 Hgb 12.3 gm/dl (10.1-14.3) 08/10/21 04:21 Hct 35.5 % (30.3-42.9) D 08/10/21 04:21 MCV 92 fl (79-97) 08/10/21 04:21 MCH 32 pg (28-32) 08/10/21 04:21 MCHC 35 % (30-34) H 08/10/21 04:21 RDW 13.2 % (13.2-15.2) 08/10/21 04:21 Plt Count 179 K/mm3 (140-440) 08/10/21 04:21 [place] % (Auto) Heat Pump Installer 08/09/21 04:48 Lymph # (Auto) Heat Pump Installer 08/09/21 04:48 Add Manual Diff Complete 08/10/21 04:21 Total Counted 100 08/10/21 04:21 Seg Neutrophils % Heat Pump Installer 08/09/21 04:48 Seg Neuts % (Manual) 82.0 % (40.0-70.0) H 08/10/21 04:21 Band Neutrophils % 3.0 % 08/10/21 04:21 Lymphocytes % (Manual) 8.0 % (13.4-35.0) L 08/10/21 04:21 Monocytes % (Manual) 7.0 % (0.0-7.3) 08/10/21 04:21 Nucleated RBC % Not Reportable 08/10/21 04:21 Seg Neutrophils # Man 9.5 K/mm3 (1.8-7.7) H 08/10/21 04:21 Band Neutrophils # 0.3 K/mm3 08/10/21 04:21 Lymphocytes # (Manual) 0.9 K/mm3 (1.2-5.4) L 08/10/21 04:21 Abs React Lymphs (Man) 0.0 K/mm3 08/10/21 04:21 Monocytes # (Manual) 0.8 K/mm3 (0.0-0.8) 08/10/21 04:21 Eosinophils # (Manual) 0.0 K/mm3 (0.0-0.4) 08/10/21 04:21 Basophils # (Manual) 0.0 K/mm3 (0.0-0.1) 08/10/21 04:21 Metamyelocytes # 0.0 K/mm3 08/10/21 04:21 Myelocytes # 0.0 K/mm3 08/10/21 04:21 Promyelocytes # 0.0 K/mm3 08/10/21 04:21 Blast Cells # 0.0 K/mm3 08/10/21 04:21 WBC Morphology Not Reportable 08/10/21 04:21 Hypersegmented Neuts Not Reportable 08/10/21 04:21 Hyposegmented Neuts Not Reportable 08/10/21 04:21 Hypogranular Neuts Not Reportable 08/10/21 04:21 Smudge Cells Not Reportable 08/10/21 04:21 Toxic Granulation Not Reportable 08/10/21 04:21 Toxic Vacuolation Not Reportable 08/10/21 04:21 Dohle Bodies Not Reportable 08/10/21 04:21 Pelger-Huet Anomaly Not Reportable 08/10/21 04:21 Casey Rods Not Reportable 08/10/21 04:21 Platelet Estimate Consistent w auto 08/10/21 04:21 Clumped Platelets Not Reportable 08/10/21 04:21 Plt Clumps, EDTA Not Reportable 08/10/21 04:21 Large Platelets Not Reportable 08/10/21 04:21 Giant Platelets Not Reportable 08/10/21 04:21 Platelet Satelliting Not Reportable 08/10/21 04:21 Plt Morphology Comment Not Reportable 08/10/21 04:21 RBC Morphology Normal 08/10/21 04:21 Dimorphic RBCs Not Reportable 08/10/21 04:21 Polychromasia Not Reportable 08/10/21 04:21 Hypochromasia Not Reportable 08/10/21 04:21 Poikilocytosis Not Reportable 08/10/21 04:21 Anisocytosis Not Reportable 08/10/21 04:21 Microcytosis Not Reportable 08/10/21 04:21 Macrocytosis Not Reportable 08/10/21 04:21 Spherocytes Not Reportable 08/10/21 04:21 Pappenheimer Bodies Not Reportable 08/10/21 04:21 Sickle Cells Not Reportable 08/10/21 04:21 Target Cells Not Reportable 08/10/21 04:21 Tear Drop Cells Not Reportable 08/10/21 04:21 Ovalocytes Not Reportable 08/10/21 04:21 Helmet Cells Not Reportable 08/10/21 04:21 [place] Bodies Not Reportable 08/10/21 04:21 [place] Rings Not Reportable 08/10/21 04:21 [place] Cells Not Reportable 08/10/21 04:21 Bite Cells Not Reportable 08/10/21 04:21 Crenated Cell Not Reportable 08/10/21 04:21 Elliptocytes Not Reportable 08/10/21 04:21 Acanthocytes (Spur) Not Reportable 08/10/21 04:21 Rouleaux Not Reportable 08/10/21 04:21 Hemoglobin C Crystals Not Reportable 08/10/21 04:21 Schistocytes Not Reportable 08/10/21 04:21 Malaria parasites Not Reportable 08/10/21 04:21 Jon Bodies Not Reportable 08/10/21 04:21 Hem Pathologist Commnt No 08/10/21 04:21 D-Dimer 1480.60 ng/mlDDU (0-234) H 08/09/21 06:04 VBG pH 7.035 (7.320-7.420) L* 08/09/21 04:48 Sodium 141 mmol/L (137-145) 08/10/21 13:20 Potassium 3.6 mmol/L (3.6-5.0) 08/10/21 13:20 Chloride 111.3 mmol/L (98-107) H 08/10/21 13:20 Carbon Dioxide 19 mmol/L (22-30) L 08/10/21 13:20 Anion Gap 14 mmol/L 08/10/21 13:20 BUN 6 mg/dL (7-17) L 08/10/21 13:20 Creatinine 0.3 mg/dL (0.6-1.2) L 08/10/21 13:20 Estimated GFR > 60 ml/min 08/10/21 13:20 BUN/Creatinine Ratio 20 % 08/10/21 13:20 Glucose 142 mg/dL (65-100) H 08/10/21 13:20 POC Glucose 172 mg/dL (70-105) H 08/10/21 15:35 Hemoglobin A1c 14.7 % (4-6) H 08/09/21 09:42 Lactic Acid 1.30 mmol/L (0.7-2.0) 08/09/21 08:54 Calcium 8.1 mg/dL (8.4-10.2) L 08/10/21 13:20 Phosphorus 0.40 mg/dL (2.5-4.5) L* D 08/10/21 04:21 Magnesium 2.00 mg/dL (1.7-2.3) 08/09/21 06:04 Ferritin 293.3 ng/mL (10.0-200.0) H 08/09/21 06:04 Total Bilirubin 0.20 mg/dL (0.1-1.2) 08/09/21 04:48 Direct Bilirubin < 0.2 mg/dL (0-0.2) 08/09/21 04:48 Indirect Bilirubin 0.0 mg/dL 08/09/21 04:48 AST 32 units/L (5-40) 08/09/21 04:48 ALT 9 units/L (7-56) 08/09/21 04:48 Alkaline Phosphatase 167 units/L (35-129) H 08/09/21 04:48 Ammonia 54.0 umol/L (25-60) 08/10/21 04:21 Lactate Dehydrogenase 272 units/L (91-180) H 08/09/21 06:04 Total Creatine Kinase 42 units/L (30-135) 08/09/21 06:33 Troponin T < 0.010 ng/mL (0.00-0.029) 08/09/21 04:48 C-Reactive Protein 2.90 mg/dL (0.00-1.30) H 08/09/21 06:04 Total Protein 7.8 g/dL (6.3-8.2) 08/09/21 04:48 Albumin 4.7 g/dL (3.9-5) 08/09/21 04:48 Albumin/Globulin Ratio 1.5 % 08/09/21 04:48 Vitamin B12 1256 pg/mL (211-911) H 08/10/21 04:21 Procalcitonin 0.81 ng/mL (<0.15) 08/09/21 06:04 TSH 0.427 mlU/mL (0.270-4.200) 08/09/21 06:33 HCG, Qual Negative (Negative) 08/09/21 06:33 Urine Color Yellow (Yellow) 08/09/21 14:56 Urine Turbidity Slightly-cloudy (Clear) 08/09/21 14:56 Urine pH 5.0 (5.0-7.0) 08/09/21 14:56 Ur Specific [place] 1.012 (1.003-1.030) 08/09/21 14:56 Urine Protein 30 mg/dl mg/dL (Negative) 08/09/21 14:56 Urine Glucose (UA) >=500 mg/dL (Negative) 08/09/21 14:56 Urine Ketones 20 mg/dL (Negative) 08/09/21 14:56 Urine Blood Sm (Negative) 08/09/21 14:56 Urine Nitrite Neg (Negative) 08/09/21 14:56 Urine Bilirubin Neg (Negative) 08/09/21 14:56 Urine Urobilinogen < 2.0 mg/dL (<2.0) 08/09/21 14:56 Ur Leukocyte Esterase Neg (Negative) 08/09/21 14:56 Urine WBC (Auto) 5.0 /HPF (0.0-6.0) 08/09/21 14:56 Urine RBC (Auto) 2.0 /HPF (0.0-6.0) 08/09/21 14:56 U Epithel Cells (Auto) 3.0 /HPF (0-13.0) 08/09/21 14:56 Urine Bacteria (Auto) 1+ /HPF (Negative) 08/09/21 14:56 Urine Mucus Few /HPF 08/09/21 14:56 Salicylates < 0.3 mg/dL (2.8-20.0) L 08/09/21 06:33 Urine Opiates Screen Negative 08/09/21 14:56 Urine Methadone Screen Negative 08/09/21 14:56 Acetaminophen 5.0 ug/mL (10.0-30.0) L 08/09/21 06:33 Ur Barbiturates Screen Negative 08/09/21 14:56 Ur Phencyclidine Scrn Negative 08/09/21 14:56 Ur Amphetamines Screen Negative 08/09/21 14:56 U Benzodiazepines Scrn Negative 08/09/21 14:56 Urine Cocaine Screen Positive 08/09/21 14:56 U Marijuana (THC) Screen Positive 08/09/21 14:56 Drugs of Abuse Note Disclamer 08/09/21 14:56 Plasma/Serum Alcohol < 0.01 % (0-0.07) 08/09/21 04:48 Syphilis IgG Antibody Nonreactive (NonReactive) 08/10/21 04:21 Coronavirus (PCR) Negative (Negative) 08/09/21 08:23 Microbiology: Microbiology 08/09/21 06:04 Peripheral/Venous Blood Culture - Preliminary NO GROWTH AFTER 24 HOURS 08/09/21 05:52 Peripheral/Venous Blood Culture - Preliminary NO GROWTH AFTER 24 HOURS Siegel/IV: Voiding Method Incontinent Active Medications - Current Medications Current Medications: Generic Name Dose Route Start Last Admin Trade Name Freq PRN Reason Stop Dose Admin Hydrocodone Bitart/Acetaminophen 2 each 08/09/21 09:19 Hydrocodone/Acetaminophen 5-325 Mg Tab PO Q6H PRN Pain, Moderate (4-6) Dextrose 50 ml 08/10/21 13:09 Dextrose 50% In Water (25gm) 50 Ml Syringe IV Q30MIN PRN Hypoglycemia Protocol Enoxaparin Sodium 30 mg 08/10/21 10:00 08/10/21 10:59 Enoxaparin 30 Mg/0.3 Ml Inj SUB-Q 30 mg QDAY MIGUEL ANGEL Administration Protocol Famotidine 20 mg 08/10/21 16:00 08/10/21 16:17 Famotidine 20 Mg Tab PO 20 mg BID MIGUEL ANGEL Administration Folic Acid 1 mg 08/10/21 10:00 08/10/21 10:59 Folic Acid 1 Mg Tab PO 1 mg QDAY MIGUEL ANGEL Administration Ceftriaxone Sodium 2 gm in 100 mls @ 200 mls/hr 08/10/21 06:00 08/10/21 06:26 Rocephin/Ns 2 Gm/100 Ml IV 08/14/21 05:59 200 mls/hr Q24H MIGUEL ANGEL Administration Protocol Azithromycin 500 mg in 250 mls @ 250 mls/hr 08/10/21 07:00 08/10/21 07:37 Zithromax/Ns IV 08/14/21 06:59 250 mls/hr Q24H MIGUEL ANGEL Administration Potassium Phosphate 30 mmol/ 510 mls @ 85 mls/hr 08/10/21 09:00 08/10/21 16:16 Sodium Chloride IV 08/10/21 20:59 85 mls/hr Q6H MIGUEL ANGEL Administration Potassium Chloride 40 meq/ 1,020 mls @ 100 mls/hr 08/10/21 09:00 08/10/21 09:25 Dextrose/Sodium Chloride IV 100 mls/hr DIRECT MIGUEL ANGEL Administration Ibuprofen 600 mg 08/09/21 09:19 Ibuprofen 600 Mg Tab PO Q6H PRN Pain, Mild (1-3) Insulin Human Isoph/Insulin Regular 15 unit 08/10/21 17:00 Insulin Nph/Regular 70/30 Inj SUB-Q BIDDIAB MIGUEL ANGEL Insulin Human Lispro 0 unit 08/10/21 16:30 08/10/21 16:28 Insulin Lispro 100 Unit/Ml SUB-Q 1 unit ACHS MIGUEL ANGEL Administration Protocol Morphine Sulfate 4 mg 08/09/21 09:19 08/10/21 16:40 Morphine 4 Mg/1 Ml Inj IV 4 mg Q4H PRN Administration Pain , Severe (7-10) Multivitamins 1 each 08/10/21 10:00 08/10/21 10:59 Multivitamins ,Therapeutic Tab PO 1 each QDAY MIGUEL ANGEL Administration Ondansetron HCl 4 mg 08/09/21 22:33 08/09/21 22:50 Ondansetron 4 Mg/2 Ml Inj IV 4 mg Q6H PRN Administration Nausea And Vomiting Senna/Docusate Sodium 1 tab 08/09/21 22:00 08/09/21 21:49 Sennosides/Docusate Sodium 8.6/50 Mg Tab PO 1 tab QHS MIGUEL ANGEL Administration Sodium Chloride 10 ml 08/09/21 10:00 08/10/21 11:00 Sodium Chloride 0.9% 10 Ml Flush Syringe IV 10 ml BID MIGUEL ANGEL Administration Sodium Chloride 10 ml 08/09/21 09:19 Sodium Chloride 0.9% 10 Ml Flush Syringe IV PRN PRN LINE FLUSH Thiamine HCl 100 mg 08/10/21 10:00 08/10/21 10:59 Thiamine 100 Mg Tab PO 100 mg QDAY MIGUEL ANGEL Administration Nutrition/Malnutrition Assess - Dietary Evaluation Nutrition/Malnutrition Findings: Nutrition Notes Start: 08/10/21 11:18 Freq: Status: Active Protocol: Document 08/10/21 11:18 GB (Rec: 08/10/21 11:43 GB [email or web address]) Nutrition Notes Need for Assessment generated from: MD Order,Education Initial or Follow up Assessment Current Diagnosis Diabetes Other Pertinent Diagnosis AMS, chronic pancreatitis, Hx Cocaine use, bipolar depression Current Diet NPO x1day Labs/Tests 08/10: glucose 111, K 3.1, creatinine 0.4, P 0.4 08/09: A1c 14.7 Pertinent Medications D5 (PRN), KCl/D5/NaCl 100ml/hr (408kcal), KPhosphate, Azithromycin, Folic Acid, multivitamins, Thiamine Height 5 ft Weight 44.6 kg [place] Body Weight (kg) 45.45 BMI 19.2 Weight change and time frame admit weight Weight Status Appropriate Subjective/Other Information Per chart: pt alert only to self, does not follow directions MD order for diet education: pt is not a candidate for nutrition education Swallow screen 08/09: lethargic, drools/coughs, delayed Percent of energy/protein needs met: 0% - NPO x 1day Burn Absent Trauma Absent GI Symptoms None Difficulty In Swallowing Food Allergy No Skin Integrity/Comment No complications reported Current % PO Other Minimum of two criteria No #1 Nutrition Diagnosis Predicted suboptimal energy intake Etiology swallow evaluation: 08/09 As Evidenced by Signs and Symptoms lethargic, drools/coughs, delayed Diet: NPO x 1day Is patient on ventilator? No Is Patient Ambulatory and/or Out of Bed No REE-([facility]-confined to bed) 1224.684 Kcal/Kg value to use for calculation 25 Approximate Energy Requirements Using 1115 kcal/Kg Calculation Used for Recommendations Kcal/kg Additional Notes Protein: 1-1.2 g/kg @ 45k -54g Fluids: 1 ml/kcal or per MD Nutrition Intervention Change Diet Order: Advance to Consistent Carbohydrate when medically feasible Nutrition Support: n/a (consider if alertness does not improve x3days.) Add Supplement/Snack (indicate name/kcal n/a /protein ) Education Handouts Provided Not a candidate for ntutrition education: alert only to self , does not follow directions Barriers to Learning Cognitive/Verbal Goal #1 diet advanced to consistent carbohydrate when medically feasible or by f/u Follow-Up By: 08/13/21 Additional Comments f/u: diet advanced/PO intake
[2021-08-10] MEDS: INSULIN NPH/REGULAR 70/30 INJ SUB-Q SCH (18:26)
[2021-08-10] MEDS: SENNOSIDES/DOCUSATE SODIUM 8.6/50 MG TAB PO SCH (22:09)
[2021-08-11] MEDS: D5W IV SCH (05:19)
[2021-08-11] MEDS: POTASSIUM CHLORIDE IV SCH (05:19)
[2021-08-11] MEDS: NACL IV SCH (05:19)
[2021-08-11] MEDS: cefTRIAXone/NS 2 GM/100 ML 2 GM/100 ML BAG IV SCH (05:25)
[2021-08-11 05:57] LABS: Hematocrit 37.3 % (30.3-42.9); Hemoglobin 12.3 gm/dl (10.1-14.3); Mean Corpuscular HGB Conc 33 % (30-34); Mean Corpuscular Volume 96 fl (79-97); Platelet Count 169 K/mm3 (140-440); Red Blood Count 3.91 M/mm3 (3.65-5.03); Red Cell Distribution Width 13.5 % (13.2-15.2)
[2021-08-11] MEDS: AZITHROMYCIN/NS 500 MG/250 ML 500 MG/250 ML BAG IV SCH (06:06)
[2021-08-11 06:14] LABS: Blood Urea Nitrogen 5 mg/dL (7-17); Calcium 8.7 mg/dL (8.4-10.2); Hemolysis Index 21
[2021-08-11 06:17] LABS: BUN/Creatinine Ratio 17
[2021-08-11] MEDS ORDERED: MAGNESIUM SULFATE 2 GM/50 ML BAG IV ONE (10:00)
[2021-08-11] MEDS: THIAMINE 100 MG TAB PO SCH (10:52)
[2021-08-11] MEDS: INSULIN NPH/REGULAR 70/30 INJ SUB-Q SCH ×2 (10:52→17:34)
[2021-08-11] MEDS: MULTIVITAMINS ,THERAPEUTIC TAB PO SCH (10:52)
[2021-08-11] MEDS: ENOXAPARIN 30 MG/0.3 ML INJ SUB-Q SCH (10:52)
[2021-08-11] MEDS: INSULIN LISPRO 100 UNIT/ML SUB-Q SCH ×4 (10:52→23:06)
[2021-08-11] MEDS: FOLIC ACID 1 MG TAB PO SCH (10:52)
[2021-08-11] MEDS: FAMOTIDINE 20 MG TAB PO SCH ×2 (10:53→21:16)
[2021-08-11] MEDS: POTASSIUM CHLORIDE 10 MEQ 10 MEQ/100 ML BAG IV SCH (11:06)
--- NOTE | 2021-08-11 13:32 | Progress Note ---
Assessment and Plan Assessment and plan: #Diabetic ketoacidosis w/ history of type 2 diabetes -s/p insulin gtt, closed AG -continue 15 units twice daily plus sliding scale -goal glucose 140s-180s while inpatient #Acute metabolic encephalopathy -resolved -CT head negative -toxicology positive for THC and cocaine -ammonia 54 #Hypomagnesemia -Magnesium 1.5 -Given 2 g of magnesium sulfate -We will continue to monitor along with K and Phos #Pneumonia -WBC count improving, patient afebrile -Covid swab negative (08/09) -Blood cultures, no growth to date -We will continue empiric CAP coverage for 5 days total #Alcohol dependence -CIOK protocol -Replete and monitor electrolytes Disposition Plan: Home tomorrow pending clinical improvement Total Time Spent with Patient (Minutes): 20 minutes History Interval history: No acute events overnight. Patient reports feeling okay, but weak. Hospitalist Physical - Physical exam Narrative exam: GENERAL: Thin woman. Lying in bed, no acute distress. CHEST/LUNGS: CTAB on room air HEART/CARDIOVASCULAR: RRR. No murmur, rubs or gallops appreciated. ABDOMEN: +BS. NT/ND. EXTREMITIES: No cyanosis, clubbing or edema. PSYCH: Cooperative. - Constitutional Vitals: Temp Pulse Resp BP Pulse Ox 98.2 F 79 20 119/73 97 08/11/21 05:13 08/11/21 05:13 08/11/21 05:13 08/11/21 05:13 08/11/21 08:35 General appearance: Present: no acute distress, mild distress, cachectic HEART Score - HEART Score EKG: Non-specific Age: < 45 Risk factors: 1-2 risk factors Troponin: Troponin T < 0.010 ng/mL (0.00-0.029) 08/09/21 04:48 Troponin: < normal limit Results - Labs CBC & Chem 7: 08/11/21 05:39 08/11/21 05:39 Labs: Laboratory Last Values WBC 6.5 K/mm3 (4.5-11.0) 08/11/21 05:39 RBC 3.91 M/mm3 (3.65-5.03) 08/11/21 05:39 Hgb 12.3 gm/dl (10.1-14.3) 08/11/21 05:39 Hct 37.3 % (30.3-42.9) 08/11/21 05:39 MCV 96 fl (79-97) 08/11/21 05:39 MCH 32 pg (28-32) 08/11/21 05:39 MCHC 33 % (30-34) 08/11/21 05:39 RDW 13.5 % (13.2-15.2) 08/11/21 05:39 Plt Count 169 K/mm3 (140-440) 08/11/21 05:39 [place] % (Auto) Prepress Supervisor 08/09/21 04:48 Lymph # (Auto) Prepress Supervisor 08/09/21 04:48 Add Manual Diff Complete 08/10/21 04:21 Total Counted 100 08/10/21 04:21 Seg Neutrophils % Prepress Supervisor 08/09/21 04:48 Seg Neuts % (Manual) 82.0 % (40.0-70.0) H 08/10/21 04:21 Band Neutrophils % 3.0 % 08/10/21 04:21 Lymphocytes % (Manual) 8.0 % (13.4-35.0) L 08/10/21 04:21 Monocytes % (Manual) 7.0 % (0.0-7.3) 08/10/21 04:21 Nucleated RBC % Not Reportable 08/10/21 04:21 Seg Neutrophils # Man 9.5 K/mm3 (1.8-7.7) H 08/10/21 04:21 Band Neutrophils # 0.3 K/mm3 08/10/21 04:21 Lymphocytes # (Manual) 0.9 K/mm3 (1.2-5.4) L 08/10/21 04:21 Abs React Lymphs (Man) 0.0 K/mm3 08/10/21 04:21 Monocytes # (Manual) 0.8 K/mm3 (0.0-0.8) 08/10/21 04:21 Eosinophils # (Manual) 0.0 K/mm3 (0.0-0.4) 08/10/21 04:21 Basophils # (Manual) 0.0 K/mm3 (0.0-0.1) 08/10/21 04:21 Metamyelocytes # 0.0 K/mm3 08/10/21 04:21 Myelocytes # 0.0 K/mm3 08/10/21 04:21 Promyelocytes # 0.0 K/mm3 08/10/21 04:21 Blast Cells # 0.0 K/mm3 08/10/21 04:21 WBC Morphology Not Reportable 08/10/21 04:21 Hypersegmented Neuts Not Reportable 08/10/21 04:21 Hyposegmented Neuts Not Reportable 08/10/21 04:21 Hypogranular Neuts Not Reportable 08/10/21 04:21 Smudge Cells Not Reportable 08/10/21 04:21 Toxic Granulation Not Reportable 08/10/21 04:21 Toxic Vacuolation Not Reportable 08/10/21 04:21 Dohle Bodies Not Reportable 08/10/21 04:21 Pelger-Huet Anomaly Not Reportable 08/10/21 04:21 Casey Rods Not Reportable 08/10/21 04:21 Platelet Estimate Consistent w auto 08/10/21 04:21 Clumped Platelets Not Reportable 08/10/21 04:21 Plt Clumps, EDTA Not Reportable 08/10/21 04:21 Large Platelets Not Reportable 08/10/21 04:21 Giant Platelets Not Reportable 08/10/21 04:21 Platelet Satelliting Not Reportable 08/10/21 04:21 Plt Morphology Comment Not Reportable 08/10/21 04:21 RBC Morphology Normal 08/10/21 04:21 Dimorphic RBCs Not Reportable 08/10/21 04:21 Polychromasia Not Reportable 08/10/21 04:21 Hypochromasia Not Reportable 08/10/21 04:21 Poikilocytosis Not Reportable 08/10/21 04:21 Anisocytosis Not Reportable 08/10/21 04:21 Microcytosis Not Reportable 08/10/21 04:21 Macrocytosis Not Reportable 08/10/21 04:21 Spherocytes Not Reportable 08/10/21 04:21 Pappenheimer Bodies Not Reportable 08/10/21 04:21 Sickle Cells Not Reportable 08/10/21 04:21 Target Cells Not Reportable 08/10/21 04:21 Tear Drop Cells Not Reportable 08/10/21 04:21 Ovalocytes Not Reportable 08/10/21 04:21 Helmet Cells Not Reportable 08/10/21 04:21 Heard-Olean Bodies Not Reportable 08/10/21 04:21 Newton Rings Not Reportable 08/10/21 04:21 Chente Cells Not Reportable 08/10/21 04:21 Bite Cells Not Reportable 08/10/21 04:21 Crenated Cell Not Reportable 08/10/21 04:21 Elliptocytes Not Reportable 08/10/21 04:21 Acanthocytes (Spur) Not Reportable 08/10/21 04:21 Rouleaux Not Reportable 08/10/21 04:21 Hemoglobin C Crystals Not Reportable 08/10/21 04:21 Schistocytes Not Reportable 08/10/21 04:21 Malaria parasites Not Reportable 08/10/21 04:21 Jon Bodies Not Reportable 08/10/21 04:21 Hem Pathologist Commnt No 08/10/21 04:21 D-Dimer 1480.60 ng/mlDDU (0-234) H 08/09/21 06:04 VBG pH 7.035 (7.320-7.420) L* 08/09/21 04:48 Sodium 138 mmol/L (137-145) 08/11/21 05:39 Potassium 3.9 mmol/L (3.6-5.0) 08/11/21 05:39 Chloride 102.3 mmol/L (98-107) 08/11/21 05:39 Carbon Dioxide 20 mmol/L (22-30) L 08/11/21 05:39 Anion Gap 20 mmol/L 08/11/21 05:39 BUN 5 mg/dL (7-17) L 08/11/21 05:39 Creatinine 0.3 mg/dL (0.6-1.2) L 08/11/21 05:39 Estimated GFR > 60 ml/min 08/11/21 05:39 BUN/Creatinine Ratio 17 % 08/11/21 05:39 Glucose 294 mg/dL (65-100) H 08/11/21 05:39 POC Glucose 234 mg/dL (70-105) H 08/11/21 12:50 Hemoglobin A1c 14.7 % (4-6) H 08/09/21 09:42 Lactic Acid 1.30 mmol/L (0.7-2.0) 08/09/21 08:54 Calcium 8.7 mg/dL (8.4-10.2) 08/11/21 05:39 Phosphorus 2.70 mg/dL (2.5-4.5) D 08/11/21 05:39 Magnesium 1.50 mg/dL (1.7-2.3) L 08/11/21 05:39 Ferritin 293.3 ng/mL (10.0-200.0) H 08/09/21 06:04 Total Bilirubin 0.20 mg/dL (0.1-1.2) 08/09/21 04:48 Direct Bilirubin < 0.2 mg/dL (0-0.2) 08/09/21 04:48 Indirect Bilirubin 0.0 mg/dL 08/09/21 04:48 AST 32 units/L (5-40) 08/09/21 04:48 ALT 9 units/L (7-56) 08/09/21 04:48 Alkaline Phosphatase 167 units/L (35-129) H 08/09/21 04:48 Ammonia 54.0 umol/L (25-60) 08/10/21 04:21 Lactate Dehydrogenase 272 units/L (91-180) H 08/09/21 06:04 Total Creatine Kinase 42 units/L (30-135) 08/09/21 06:33 Troponin T < 0.010 ng/mL (0.00-0.029) 08/09/21 04:48 C-Reactive Protein 2.90 mg/dL (0.00-1.30) H 08/09/21 06:04 Total Protein 7.8 g/dL (6.3-8.2) 08/09/21 04:48 Albumin 4.7 g/dL (3.9-5) 08/09/21 04:48 Albumin/Globulin Ratio 1.5 % 08/09/21 04:48 Vitamin B12 1256 pg/mL (211-911) H 08/10/21 04:21 Procalcitonin 0.81 ng/mL (<0.15) 08/09/21 06:04 TSH 0.427 mlU/mL (0.270-4.200) 08/09/21 06:33 HCG, Qual Negative (Negative) 08/09/21 06:33 Urine Color Yellow (Yellow) 08/09/21 14:56 Urine Turbidity Slightly-cloudy (Clear) 08/09/21 14:56 Urine pH 5.0 (5.0-7.0) 08/09/21 14:56 Ur Specific [place] 1.012 (1.003-1.030) 08/09/21 14:56 Urine Protein 30 mg/dl mg/dL (Negative) 08/09/21 14:56 Urine Glucose (UA) >=500 mg/dL (Negative) 08/09/21 14:56 Urine Ketones 20 mg/dL (Negative) 08/09/21 14:56 Urine Blood Sm (Negative) 08/09/21 14:56 Urine Nitrite Neg (Negative) 08/09/21 14:56 Urine Bilirubin Neg (Negative) 08/09/21 14:56 Urine Urobilinogen < 2.0 mg/dL (<2.0) 08/09/21 14:56 Ur Leukocyte Esterase Neg (Negative) 08/09/21 14:56 Urine WBC (Auto) 5.0 /HPF (0.0-6.0) 08/09/21 14:56 Urine RBC (Auto) 2.0 /HPF (0.0-6.0) 08/09/21 14:56 U Epithel Cells (Auto) 3.0 /HPF (0-13.0) 08/09/21 14:56 Urine Bacteria (Auto) 1+ /HPF (Negative) 08/09/21 14:56 Urine Mucus Few /HPF 08/09/21 14:56 Salicylates < 0.3 mg/dL (2.8-20.0) L 08/09/21 06:33 Urine Opiates Screen Negative 08/09/21 14:56 Urine Methadone Screen Negative 08/09/21 14:56 Acetaminophen 5.0 ug/mL (10.0-30.0) L 08/09/21 06:33 Ur Barbiturates Screen Negative 08/09/21 14:56 Ur Phencyclidine Scrn Negative 08/09/21 14:56 Ur Amphetamines Screen Negative 08/09/21 14:56 U Benzodiazepines Scrn Negative 08/09/21 14:56 Urine Cocaine Screen Positive 08/09/21 14:56 U Marijuana (THC) Screen Positive 08/09/21 14:56 Drugs of Abuse Note Disclamer 08/09/21 14:56 Plasma/Serum Alcohol < 0.01 % (0-0.07) 08/09/21 04:48 Syphilis IgG Antibody Nonreactive (NonReactive) 08/10/21 04:21 Coronavirus (PCR) Negative (Negative) 08/09/21 08:23 Microbiology: Microbiology 08/09/21 06:04 Peripheral/Venous Blood Culture - Preliminary NO GROWTH AFTER 48 HOURS 08/09/21 05:52 Peripheral/Venous Blood Culture - Preliminary NO GROWTH AFTER 48 HOURS Siegel/IV: Voiding Method Incontinent Active Medications - Current Medications Current Medications: Generic Name Dose Route Start Last Admin Trade Name Freq PRN Reason Stop Dose Admin Hydrocodone Bitart/Acetaminophen 2 each 08/09/21 09:19 Hydrocodone/Acetaminophen 5-325 Mg Tab PO Q6H PRN Pain, Moderate (4-6) Dextrose 50 ml 08/10/21 13:09 08/10/21 22:16 Dextrose 50% In Water (25gm) 50 Ml Syringe IV 15 ml Q30MIN PRN Administration Hypoglycemia Protocol Enoxaparin Sodium 30 mg 08/10/21 10:00 08/11/21 10:52 Enoxaparin 30 Mg/0.3 Ml Inj SUB-Q 30 mg QDAY MIGUEL ANGEL Administration Protocol Famotidine 20 mg 08/10/21 16:00 08/11/21 10:53 Famotidine 20 Mg Tab PO 20 mg BID MIGUEL ANGEL Administration Folic Acid 1 mg 08/10/21 10:00 08/11/21 10:52 Folic Acid 1 Mg Tab PO 1 mg QDAY MIGUEL ANGEL Administration Ceftriaxone Sodium 2 gm in 100 mls @ 200 mls/hr 08/10/21 06:00 08/11/21 05:25 Rocephin/Ns 2 Gm/100 Ml IV 08/14/21 05:59 200 mls/hr Q24H MIGUEL ANGEL Administration Protocol Azithromycin 500 mg in 250 mls @ 250 mls/hr 08/10/21 07:00 08/11/21 06:06 Zithromax/Ns IV 08/14/21 06:59 250 mls/hr Q24H MIGUEL ANGEL Administration Ibuprofen 600 mg 08/09/21 09:19 Ibuprofen 600 Mg Tab PO Q6H PRN Pain, Mild (1-3) Insulin Human Isoph/Insulin Regular 15 unit 08/10/21 17:00 08/11/21 10:52 Insulin Nph/Regular 70/30 Inj SUB-Q 15 unit BIDDIAB MIGUEL ANGEL Administration Insulin Human Lispro 0 unit 08/10/21 16:30 08/11/21 10:52 Insulin Lispro 100 Unit/Ml SUB-Q 4 unit ACHS MIGUEL ANGEL Administration Protocol Multivitamins 1 each 08/10/21 10:00 08/11/21 10:52 Multivitamins ,Therapeutic Tab PO 1 each QDAY MIGUEL ANGEL Administration Ondansetron HCl 4 mg 08/09/21 22:33 08/09/21 22:50 Ondansetron 4 Mg/2 Ml Inj IV 4 mg Q6H PRN Administration Nausea And Vomiting Senna/Docusate Sodium 1 tab 08/09/21 22:00 08/10/21 22:09 Sennosides/Docusate Sodium 8.6/50 Mg Tab PO Not Given QHS MIGUEL ANGEL Sodium Chloride 10 ml 08/09/21 10:00 08/11/21 12:35 Sodium Chloride 0.9% 10 Ml Flush Syringe IV Not Given BID MIGUEL ANGEL Sodium Chloride 10 ml 08/09/21 09:19 Sodium Chloride 0.9% 10 Ml Flush Syringe IV PRN PRN LINE FLUSH Thiamine HCl 100 mg 08/10/21 10:00 08/11/21 10:52 Thiamine 100 Mg Tab PO 100 mg QDAY MIGUEL ANGEL Administration Nutrition/Malnutrition Assess - Dietary Evaluation Nutrition/Malnutrition Findings: Nutrition Notes Start: 08/10/21 11:18 Freq: Status: Active Protocol: Document 08/10/21 11:18 GB (Rec: 08/10/21 11:43 GB [id number]) Nutrition Notes Need for Assessment generated from: MD Order,Education Initial or Follow up Assessment Current Diagnosis Diabetes Other Pertinent Diagnosis AMS, chronic pancreatitis, Hx Cocaine use, bipolar depression Current Diet NPO x1day Labs/Tests 08/10: glucose 111, K 3.1, creatinine 0.4, P 0.4 08/09: A1c 14.7 Pertinent Medications D5 (PRN), KCl/D5/NaCl 100ml/hr (408kcal), KPhosphate, Azithromycin, Folic Acid, multivitamins, Thiamine Height 5 ft Weight 44.6 kg [place] Body Weight (kg) 45.45 BMI 19.2 Weight change and time frame admit weight Weight Status Appropriate Subjective/Other Information Per chart: pt alert only to self, does not follow directions MD order for diet education: pt is not a candidate for nutrition education Swallow screen 08/09: lethargic, drools/coughs, delayed Percent of energy/protein needs met: 0% - NPO x 1day Burn Absent Trauma Absent GI Symptoms None Difficulty In Swallowing Food Allergy No Skin Integrity/Comment No complications reported Current % PO Other Minimum of two criteria No #1 Nutrition Diagnosis Predicted suboptimal energy intake Etiology swallow evaluation: 08/09 As Evidenced by Signs and Symptoms lethargic, drools/coughs, delayed Diet: NPO x 1day Is patient on ventilator? No Is Patient Ambulatory and/or Out of Bed No REE-([facility]-confined to bed) 1224.684 Kcal/Kg value to use for calculation 25 Approximate Energy Requirements Using 1115 kcal/Kg Calculation Used for Recommendations Kcal/kg Additional Notes Protein: 1-1.2 g/kg @ 45k -54g Fluids: 1 ml/kcal or per MD Nutrition Intervention Change Diet Order: Advance to Consistent Carbohydrate when medically feasible Nutrition Support: n/a (consider if alertness does not improve x3days.) Add Supplement/Snack (indicate name/kcal n/a /protein ) Education Handouts Provided Not a candidate for ntutrition education: alert only to self , does not follow directions Barriers to Learning Cognitive/Verbal Goal #1 diet advanced to consistent carbohydrate when medically feasible or by f/u Follow-Up By: 08/13/21 Additional Comments f/u: diet advanced/PO intake
[2021-08-11] MEDS: SENNOSIDES/DOCUSATE SODIUM 8.6/50 MG TAB PO SCH (21:16)
[2021-08-12] MEDS: cefTRIAXone/NS 2 GM/100 ML 2 GM/100 ML BAG IV SCH (06:03)
[2021-08-12] MEDS: AZITHROMYCIN/NS 500 MG/250 ML 500 MG/250 ML BAG IV SCH (06:04)
[2021-08-12 06:06] LABS: Hematocrit 32.8 % (30.3-42.9); Mean Corpuscular HGB Conc 34 % (30-34); Mean Corpuscular Volume 93 fl (79-97); Platelet Count 191 K/mm3 (140-440); Red Blood Count 3.53 M/mm3 (3.65-5.03); Red Cell Distribution Width 13.2 % (13.2-15.2)
[2021-08-12 06:24] LABS: Blood Urea Nitrogen 5 mg/dL (7-17); Calcium 9.1 mg/dL (8.4-10.2); Hemolysis Index 2
[2021-08-12 06:31] LABS: BUN/Creatinine Ratio 13
[2021-08-12] MEDS: INSULIN NPH/REGULAR 70/30 INJ SUB-Q SCH (08:00)
[2021-08-12] MEDS: ENOXAPARIN 30 MG/0.3 ML INJ SUB-Q SCH (09:03)
[2021-08-12] MEDS: FOLIC ACID 1 MG TAB PO SCH (09:04)
[2021-08-12] MEDS: FAMOTIDINE 20 MG TAB PO SCH (09:04)
[2021-08-12] MEDS: MULTIVITAMINS ,THERAPEUTIC TAB PO SCH (09:04)
[2021-08-12] MEDS: THIAMINE 100 MG TAB PO SCH (09:04)
[2021-08-12] MEDS: INSULIN LISPRO 100 UNIT/ML SUB-Q SCH (09:05)
[2021-08-12] MEDS ORDERED: POTASSIUM CHLORIDE ER 20 MEQ TAB PO SCH (09:30)
[2021-08-12 12:17] VITALS: BP 95/60
--- NOTE | 2021-08-12 15:51 | Discharge Summary ---
Providers - Providers Date of Admission: 08/09/21 09:19 Date of discharge: 08/12/21 Attending physician: EUSEBIO SILVEIRA MD 08/09/21 04:44 Consult to Dietitian/Nutrition [CONS] Routine Physician Instructions: Reason For Exam: DKA and malnutrition Reason for Consult: Nutrition Recommendations Reason for Consult: Diet education 08/09/21 08:15 Speech Therapy Evaluation and Treat [CONS] Urgent Reason For Exam: failed swallow screen 08/11/21 13:23 Physical Therapy Evaluation and Treat [CONS] Routine Comment: Reason For Exam: Weakness Primary care physician: SPORTS ATTORNEY Hospitalization Condition: Critical Disposition: HOME / SELF CARE / HOMELESS Exam - Constitutional Vitals: Temp Pulse Resp BP Pulse Ox 97.8 F 81 18 95/60 97 08/12/21 11:31 08/12/21 11:31 08/12/21 11:31 08/12/21 11:31 08/12/21 11:31 Plan Care Plan Goals: Follow up with PCP. Take antibiotics until they are complete. Continue taking the insulin daily as it is prescribed to you. Assessment: Improved. Patient no longer in diabetic ketoacidosis after insulin drip. Restarted on basal, bolus insulin regimen with improvement in blood sugars. Also treated for Pneumonia. Once stable, patient was discharged with instructions to follow up with PCP and to finish antibiotics course. Follow up with: PRIMARY MD IONA [Primary Care Provider] - 3-5 Days Prescriptions: Amoxicillin/Potassium Clav [Augmentin 875-125 Tablet] 1 each PO Q12H 2 Days #4 tablet Insulin NPH/Regular [NovoLIN 70/30] 15 unit SUB-Q BIDDIAB 30 Days #900 units Azithromycin [Zithromax TAB] 250 mg PO QDAY 2 Days #2 tablet
[2021-08-13] MEDS ORDERED: AZITHROMYCIN 250 MG TAB PO SCH (10:00)
== END 2021-08-12 16:28 | disposition home or self-care (01) | DRG 871 ==
LOC: ED 03:51 → CC1 09:19 → 4A 08-10 20:37
PROVIDERS: ADMIT Student in an Organized Health Care Education/Training Program; ATTEND Student in an Organized Health Care Education/Training Program
DX: A41.9 Sepsis, unspecified organism (principal); E11.10 Type 2 diabetes mellitus with ketoacidosis without coma; G93.41 Metabolic encephalopathy; J18.9 Pneumonia, unspecified organism; E46 Unspecified protein-calorie malnutrition; Z68.1 Body mass index [BMI] 19.9 or less, adult; E87.1 Hypo-osmolality and hyponatremia; Z20.822 Contact with and (suspected) exposure to COVID-19; F31.9 Bipolar disorder, unspecified; F17.200 Nicotine dependence, unspecified, uncomplicated; E87.6 Hypokalemia; E87.8 Other disorders of electrolyte and fluid balance, not elsewhere classified; F10.20 Alcohol dependence, uncomplicated; Y90.9 Presence of alcohol in blood, level not specified; Z90.49 Acquired absence of other specified parts of digestive tract; Z83.3 Family history of diabetes mellitus
CPT/HCPCS: 36415; 70450; 71045; 80048; 80076; 80307; 80320; 81001; 82140; 82310; 82550; 82607; 82728; 82805; 82947; 82962; 83036; 83615; 83735; 84100; 84145; 84443; 84484; 84703; 85007; 85025; 85027; 85379; 86140; 86592; 87040; 93005; 99406; G0378; G0480; J0456; J0696; J1650; J1815; J2270; J2405; J3475; J3480; J7030; J7040; J7042; U0003